=== PATIENT | female | born 1955 | race Caucasian/White ===

== ENCOUNTER → 2019-12-23 07:20 | Outpatient (CLI) | payer MEDICARE, SELFPAY ==
[2019-12-07 09:43] VITALS: BMI 34.2
--- NOTE | 2019-12-23 07:21 | ECHOD_ITS ---
Version 2 Reason For Study: Murmur Procedure This was a 2D Doppler, Color Flow transthoracic echocardiogram. Exam performed in department. Left Ventricle Normal LV size. Mild concentric left ventricular hypertrophy. Left ventricular systolic function is normal. The estimated ejection fraction is 60 %. No regional wall motion abnormalities noted. Right Ventricle Normal RV size. Normal systolic function. Atria Normal left atrium. Normal right atrium. Mitral Valve Normal mitral valve. Tricuspid Valve Normal tricuspid valve. Aortic Valve Trisinus/trileaflet aortic valve. Moderate focal aortic valve calcification. Peak aortic valve gradient 37 mmHg. Mean aortic valve gradient 21 mmHg. Calculated aortic valve area (continuity equation) is 1.3 cm2. Mild to moderate aortic stenosis. Pulmonic Valve Normal pulmonic valve. Great Vessels Normal aortic root. The pulmonary artery is normal size. Normal inferior vena cava. Pericardium/Pleural No pericardial effusion. MMode/2D Measurements & Calculations LVIDd: 4.4 cm IVSd: 1.2 cm LVOT diam: 2.0 cm LVIDs: 2.3 cm LVPWd: 1.2 cm LVOT area: 3.0 cm2 RVDd: 2.8 cm FS: 47.1 % Ao root diam: 3.6 cm LAV(MOD-bp): 47.9 ml EDV(MOD-sp4): 72.1 ml LAV(MOD-bp) Indexed: 26.8 ml/m2 ESV(MOD-sp4): 22.5 ml LAV(MOD-sp2): 48.6 ml EF(MOD-sp4): 68.7 % LAV(MOD-sp4): 44.5 ml EDV(MOD-sp2): 70.6 ml SV(MOD-sp4): 49.6 ml SV(MOD-sp2): 42.0 ml EF(MOD-sp2): 59.5 % LA A4 area: 17.6 cm2 LA dimension(2D): 3.6 cm RA A4 area: 12.4 cm2 Doppler Measurements & Calculations MV E max shaji: 93.9 cm/sec Lat Peak E' Shaji: 8.3 cm/sec Med Peak E' Shaji: 5.6 cm/sec MV A max shaji: 93.4 cm/sec E/E' lat: 11.3 E/E' med: 16.7 MV E/A: 1.0 Ao V2 max: 306.6 cm/sec LV V1 max: 127.6 cm/sec SV(LVOT): 103.1 ml Ao max P.7 mmHg LV V1 max P.5 mmHg Ao V2 mean: 217.7 cm/sec LV V1 mean P.7 mmHg Ao mean P.2 mmHg LV V1 mean: 92.0 cm/sec Ao V2 VTI: 79.0 cm LV V1 VTI: 33.8 cm CHARISSE(I,D): 1.3 cm2 CHARISSE(V,D): 1.3 cm2 PA V2 max: 86.7 cm/sec Interpretation Summary Normal LV size. Mild concentric left ventricular hypertrophy. Left ventricular systolic function is normal. The estimated ejection fraction is 60 %. Peak aortic valve gradient 37 mmHg. Mean aortic valve gradient 21 mmHg. Calculated aortic valve area (continuity equation) is 1.3 cm2. Mild to moderate aortic stenosis. Ordering Physician: Ty Quinones Referring Physician: Joshua Jeronimo Performed By: Isis Novoa RDCS
--- NOTE | 2019-12-23 10:40 | STRESSREP_ITS ---
Stress Test Report Exercise myocardial perfusion stress test. 64-year-old lady with a history of previous LAD stenting. Stress protocol: Resting EKG demonstrates sinus bradycardia with a rate of 48 bpm normal intervals are noted resting blood pressure 154/82 mmHg. The patient exercised according to regular [facility] protocol for a total duration of 6 minutes and 15 seconds. The maximum heart rate attained was 131 bpm which was 84% of maximum active heart rate the maximum workload was 7.3 metabolic equivalents. At rest there were no ST or T wave changes noted to suggest ischemia peak exercise upsloping ST changes only were noted with no meet the criteria for ischemia. The resting blood pressure was 154/82 with a peak blood pressure 164/80 mmHg. The test was terminated due to leg discomfort. No chest pain or shortness of breath was noted. Myocardial perfusion protocol. 11.0 mCi of technetium 99m sestamibi was injected at rest. The patient ex ercised per usual protocol to 6 minutes and 15 seconds. At peak exercise 33.0 mCi of technetium 99m sestamibi was injected stress images were obtained stress and rest images were reconstructed and compared in the short axis vertical long horizontal long axis. Gated images were also obtained Perfusion SPECT analysis: Review of the images demonstrate normal uptake of tracer noted in all areas of the myocardium the resting images similar demonstrate normal uptake of tracer noted in all areas of the myocardium. No reversibility is noted to suggest ischemia no previous infarct is noted. Gated SPECT analysis: The gated ejection fraction is noted to be 72%. Conclusion: Normal exercise myocardial perfusion stress test at a moderate workload. Preserved ejection fraction.
== END ==
PROVIDERS: PCP Family Medicine; Referring Provider Internal Medicine Cardiovascular Disease; Visit Provider Internal Medicine Cardiovascular Disease
DX: R06.00 Dyspnea, unspecified (principal); R07.9 Chest pain, unspecified
CPT/HCPCS: 78452; 93017; 93306; A9500; A4216

== ENCOUNTER 2023-08-07 18:29 | Emergency (ER) | payer MEDICARE, SELFPAY ==
[2023-08-07 18:30] VITALS: BP 174/80; PULSE 72; RESP 14; TEMP 36.8; O2SAT 100
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
--- OUTSIDE RECORDS SUMMARY | 2023-08-07 20:29 | XMS RPT_ITS | CCD ---
Author Name Unknown Address [address] [place] [address] Organization [facility] Care Team Providers Care Manager Global Name Role Phone LINK CASEY Unavailable Unavailable IMCA Unavailable Unavailable Alexander Dietrich Unavailable Unavailable LINK CASEY Unavailable Unavailable LINK CASEY Unavailable Unavailable Alexander Dietrich Unavailable Unavailable LINK CASEY E Unavailable Unavailable Martha Jeronimo MD Primary Care Provider Martha Jeronimo MD Primary Care Provider Martha Jeronimo MD Primary Care Provider YANNLOGJENA, MARIBEL Referring Unavailable MARTHA JERONIMO Primary Care Unavailab le YANNLOGAR, MARIBEL Attending Unavailable MARTHA JERONIMO Primary Care Unavailab IVETTE Barahona Referring Unavailable DONNA WOLF Attending Unavailable MARTHA JERONIMO Primary Care Unavailab IVETTE Barahona Attending Unavailable MARTHA JERONIMO Primary Care Unavailab MARTHA Pryor Referring Unavailab MARTHA Pryor Primary Care Unavailab le PODLOGARMARIBEL Referring Unavailable MARTHA JERONIMO Primary Care Unavailab le PODLOGARMARIBEL Referring Unavailable PODLOGARMARIBEL Attending Unavailable MARTHA JERONIMO Primary Care Unavailab le PODLOGAR, MARIBEL Referring Unavailable MARTHA JERONIMO Primary Care Unavailab le PODLOGAR, MARIBEL Referring Unavailable MARTHA JERONIMO Primary Care Unavailab le Allergies Allergy Classification Reported Allergen(s) Allergy Type Date of Onset Reaction(s) Facility (20 sources) lisinopril; Translations: [LISINOPRIL] Drug Allergy 2 Cough [facility] Repository (7 sources) HMG-CoA reductase inhibitor; Translations: [VILLUMU-OVW-LU A REDUCTASE INHIBITORS] Drug Intolerance 1 Myalgia [facility] Work Phone: (20 sources) Simvastatin; Translations: [SIMVASTATIN] Drug Allergy 9 Other: See Comments [facility] Work Phone: (17 sources) HMG-CoA reductase inhibitor Drug Intolerance 1 Myalgia [facility] Work Phone: Medications Current Medications Medication Drug Class(es) Dates Sig (Normalized) Sig (Original) azithromycin 500 mg oral tablet (2 sources) Macrolide Antimicrobial Start: 06-01-2022 End: 06-04-2022 take 1 tablet by mouth once daily azithromycin (ZITHROMAX) 500 mg tablet Take 1 tablet by mouth once daily for 3 days. 3 tablet 0 06/01/2022 06/04/2022 Active Completed/Discontinued Medications Medication Drug Class(es) Dates Sig (Normalized) Sig (Original) aspirin 81 mg delayed release oral tablet (20 sources) Platelet Aggregation Inhibitor, Nonsteroidal Anti-inflammatory Drug Start: 02-20-2015 take 1 tablet by mouth once daily aspirin, enteric coated (ECOTRIN LOW STRENGTH) 81 mg EC tablet Take 1 tablet by mouth once daily. 0 02/20/2015 Active Problems Active Problems Problem Classification Problem Date Documented Da te Episodic/Chronic Adjustment disorders (20 sources) Adjustment disorder; Translations: [Adjustment disorder, unspecified] Onset: 02-07-2013 02-07-2013 Chronic Blindness and vision defects (1 source) Unspecified visual loss; Translations: [Vision impairment] Onset: 07-08-2022 Chronic Blindness and vision defects (3 sources) Bilateral hyperopia of eyes; Translations: [Hypermetropia, bilateral] Episodic Cardiac dysrhythmias (2 sources) Bradycardia; Translations: [Bradycardia, unspecified] Onset: 06-24-2023 06-24-2023 Episodic Cataract (2 sources) Bilateral senile combined form cataracts of eyes; Translations: [Combined forms of age-related cataract, bilateral] Chronic Coronary atherosclerosis and other heart disease (20 sources) Atherosclerotic heart disease of [place] coronary artery without angina pectoris; Translations: [Coronary arteriosclerosis] Onset: 06-07-2015 06-07-2015 Chronic Disorders of lipid metabolism (20 sources) Mixed hyperlipidemia; Translations: [Mixed hyperlipidemia] Onset: 06-14-2017 06-14-2017 Chronic Essential hypertension (20 sources) Essential hypertension; Translations: [Essential (primary) hypertension] Onset: 02-18-2012 06-07-2015 Chronic Heart valve disorders (20 sources) Nonrheumatic aortic (valve) stenosis; Translations: [Aortic valve disorders] Onset: 06-07-2015 06-07-2015 Chronic Mood disorders (20 sources) Depressive disorder; Translations: [Depression] Onset: 02-07-2013 02-07-2013 Chronic Other and unspecified benign neoplasm (1 source) Tubular adenoma ; Translations: [Benign neoplasm, unspecified site] Episodic Other eye disorders (2 sources) Dry eyes; Translations: [Dry eye syndrome of bilateral lacrimal glands] Episodic Other gastrointestinal disorders (1 source) Abdominal wind pain; Translations: [Gas pain] Episodic Other gastrointestinal disorders (1 source) Abdominal bloating; Translations: [Abdominal distension (gaseous)] Episodic Other gastrointestinal disorders (1 source) History of hemorrhoid; Translations: [Personal history of other diseases of the digestive system] Episodic Other gastrointestinal disorders (1 source) Diarrhea; Translations: [Diarrhea, unspecified] Episodic Other nutritional; endocrine; and metabolic disorders (20 sources) Body mass index 30+ - obesity; Translations: [Obesity, unspecified] 02-18-2018 Chronic Other nutritional; endocrine; and metabolic disorders (5 sources) Obese class II; Translations: [Obesity, unspecified] Onset: 12-22-2022 12-22-2022 Chronic Other nutritional; endocrine; and metabolic disorders (2 sources) Obesity, unspecified; Translations: [Obesity (BMI 30-39.9)] Onset: 02-18-2018 Chronic Other screening for suspected conditions (not mental disorders or infectious disease) (8 sources) Mammography abnormal; Translations: [Other abnormal and inconclusive findings on diagnostic imaging of breast] Onset: 12-22-2022 Episodic Residual codes; unclassified (20 sources) Edema of lower extremity; Translations: [Localized edema] 02-21-2019 Episodic Residual codes; unclassified (1 source) Statin declined; Translations: [Procedure and treatment not carried out because of patient's decision for unspecified reasons] 06-24-2023 Episodic Residual codes; unclassified (1 source) Procedure and treatment not carried out because of patient's decision for unspecified reasons; Translations: [Statin declined] Onset: 06-24-2023 Episodic Unclassified (1 source) Unknown / UNK(Unknown) Onset: 06-07-2015 Past or Other Problems Problem Classification Problem Date Documented Da te Episodic/Chronic Diabetes mellitus without complication (20 sources) Prediabetes; Translations: [Prediabetes] Onset: 08-23-2018 08-23-2018 Episodic Other and unspecified benign neoplasm (9 sources) Tubular adenoma of colon; Translations: [Benign neoplasm of colon, unspecified] Onset: 05-03-2022 06-16-2022 Episodic Residual codes; unclassified (10 sources) Other specified health status; Translations: [Other drug allergy] Onset: 06-16-2022 06-16-2022 Episodic Results Test Name Value Interpretation Reference Range Facil ity Vital Signs Date Time Vital Sign Value Performing Clinician Mary Anne rios 06-24-2023 09:25-0500 Body weight 86.82 kg Maribel Podlogar ULTRASOUND TECHNICIAN.DEEP SEA DIVER Work Phone: [facility] 06-24-2023 09:25-0500 Diastolic blood pressure 72 mm[Hg] Maribel Podlogar ULTRASOUND TECHNICIAN.DEEP SEA DIVER Work Phone: [facility] 06-24-2023 09:25-0500 Heart rate 52 /min Maribel Podlogar ULTRASOUND TECHNICIAN.DEEP SEA DIVER Work Phone: [facility] 06-24-2023 09:25-0500 Respiratory rate 16 /min Maribel Podlogar ULTRASOUND TECHNICIAN.DEEP SEA DIVER Work Phone: [facility] 06-24-2023 09:25-0500 SaO2% (BldA) [Mass fraction] 98 % Maribel Podlogar ULTRASOUND TECHNICIAN.DEEP SEA DIVER Work Phone: [facility] 06-24-2023 09:25-0500 Systolic blood pressure 116 mm[Hg] Maribel Podlogar ULTRASOUND TECHNICIAN.DEEP SEA DIVER Work Phone: [facility] 06-03-2022 08:48-0400 Body temperature 98.01 [degF] Che Ríos PA-C Work Phone: [facility] 06-03-2022 08:48-0400 Body weight 86 kg Che Michoacano PA-C Work Phone: [facility] 06-03-2022 08:48-0400 Diastolic blood pressure 70 mm[Hg] Che Egeland PA-C Work Phone: [facility] 06-03-2022 08:48-0400 Heart rate 79 /min Che Michoacano PA-C Work Phone: [facility] 06-03-2022 08:48-0400 SaO2% (BldA) [Mass fraction] 98 % Che Michoacano PA-C Work Phone: [facility] 06-03-2022 08:48-0400 Systolic blood pressure 128 mm[Hg] Che Egeland PA-C Work Phone: [facility] 05-28-2022 14:02-0400 Body temperature 97.11 [degF] Jose Miguel Francisco ULTRASOUND TECHNICIAN.DEEP SEA DIVER Work Phone: [facility] 05-28-2022 14:02-0400 Body weight 83.46 kg Jose Miguel Francisco ULTRASOUND TECHNICIAN.DEEP SEA DIVER Work Phone: [facility] 05-28-2022 14:02-0400 Diastolic blood pressure 88 mm[Hg] Jose Miguel Francisco ULTRASOUND TECHNICIAN.DEEP SEA DIVER Work Phone: [facility] 05-28-2022 14:02-0400 Heart rate 65 /min Jose Miguel Francisco ULTRASOUND TECHNICIAN.DEEP SEA DIVER Work Phone: [facility] 05-28-2022 14:02-0400 Respiratory rate 18 /min Jose Miguel Francisco ULTRASOUND TECHNICIAN.DEEP SEA DIVER Work Phone: [facility] 05-28-2022 14:02-0400 SaO2% (BldA) [Mass fraction] 97 % Jose Miguel Francisco ULTRASOUND TECHNICIAN.DEEP SEA DIVER Work Phone: [facility] 05-28-2022 14:02-0400 Systolic blood pressure 130 mm[Hg] Jose Miguel Francisco ULTRASOUND TECHNICIAN.DEEP SEA DIVER Work Phone: [facility] 05-02-2022 10:55-0400 Heart rate 47 /min Kimberly Jaramillo MD Work Phone: [facility] 05-02-2022 10:55-0400 SaO2% (BldA) [Mass fraction] 99 % Kimberly Jaramillo MD Work Phone: [facility] 05-02-2022 10:45-0400 Diastolic blood pressure 62 mm[Hg] Kimberly Jaramillo MD Work Phone: [facility] 05-02-2022 10:45-0400 Respiratory rate 16 /min Kimberly Jaramillo MD Work Phone: [facility] 05-02-2022 10:45-0400 Systolic blood pressure 131 mm[Hg] Kimberly Jaramillo MD Work Phone: [facility] 05-02-2022 09:27-0400 Body temperature 97.2 [degF] Kimberly Jaramillo MD Work Phone: [facility] 05-02-2022 09:27-0400 Body weight 83.5 kg Kimberly Jaramillo MD Work Phone: [facility] 02-25-2022 09:35-0400 Body height 152.4 cm Che Egeland PA-C Work Phone: [facility] 02-25-2022 09:35-0400 Body temperature 96.91 [degF] Che Michoacano PA-C Work Phone: [facility] 02-25-2022 09:35-0400 Body weight 83.46 kg Che Michoacano PA-C Work Phone: [facility] 02-25-2022 09:35-0400 Diastolic blood pressure 90 mm[Hg] Che Michoacano PA-C Work Phone: [facility] 02-25-2022 09:35-0400 Heart rate 86 /min Che Egeland PA-C Work Phone: [facility] 02-25-2022 09:35-0400 SaO2% (BldA) [Mass fraction] 98 % Che Michoacano PA-C Work Phone: [facility] 02-25-2022 09:35-0400 Systolic blood pressure 140 mm[Hg] Che Ríos PA-C Work Phone: [facility] 12-13-2021 10:45-0400 Body height 151.5 cm Martha Jeronimo MD Work Phone: [facility] 12-13-2021 10:45-0400 Body weight 83.01 kg Martha Jeronimo MD Work Phone: [facility] 12-13-2021 10:45-0400 Diastolic blood pressure 72 mm[Hg] Martha Jeronimo MD Work Phone: [facility] 12-13-2021 10:45-0400 Heart rate 56 /min Martha Jeronimo MD Work Phone: [facility] 12-13-2021 10:45-0400 Respiratory rate 18 /min Martha Jeronimo MD Work Phone: [facility] 12-13-2021 10:45-0400 SaO2% (BldA) [Mass fraction] 95 % Martha Jeronimo MD Work Phone: [facility] 12-13-2021 10:45-0400 Systolic blood pressure 118 mm[Hg] Martha Jeronimo MD Work Phone: [facility] Encounters Encounter Date Encounter Type Care Provider Facility Start: 07-01-2023 Telephone encounter Maribel calle APRN.CNP Work Phone: [facility] Procedures Date Procedure Procedure Detail Performing Clinician Start: 06-24-2023 Ecg routine ecg w/le ast 12 lds i&r only [facility] Provider Start: 03-24-2023 Lipid 1996 panel - S anayeli or Plasma Maribel Rebolledo APRN.CNP Work Phone: Start: 03-13-2023 Mammography Maribel calle APRN.CNP Work Phone: Start: 05-02-2022 Colonoscopy flx dx w/collj spec when pfrmd Che Ríos PA-C Work Phone: Start: 05-02-2022 Colonoscopy Kimberly Jaramillo MD Work Phone: Start: 01-14-2022 ESTELA MELIA W LAM LT Maryan Reddylogar ULTRASOUND TECHNICIAN.DEEP SEA DIVER Work Phone: Start: 12-09-2021 Mammography Mammograph y Coordinator Start: 04-02-2020 Mammography Ryder Jeronimo MD Work Phone: Plan of Treatment Date Care Activity Detail Author Start: 03-24-2028 Lipid 1996 panel - S anayeli or Plasma Lipid Screening [facility] Start: 06-23-2027 LIPID SCREEN LIPID SCREEN [facility] Start: 12-13-2026 LIPID SCREEN LIPID SCREEN [facility] Start: 07-31-2026 LIPID SCREEN LIPID SCREEN [facility] Start: 06-24-2026 Diabetes Screening Diabetes Screenin g [facility] Start: 12-22-2025 DIABETES SCREEN DIABETES SCREEN [facility] Start: 12-22-2025 Diabetes Screening Diabetes Screenin g [facility] Start: 06-23-2025 DIABETES SCREEN DIABETES SCREEN [facility] Start: 05-02-2025 Colonoscopy COLONOSCOPY [facility] Start: 05-02-2025 COLORECTAL CANCER SCREENING COLORECTAL CANCER SCREENING [facility] Start: 12-13-2024 DIABETES SCREEN DIABETES SCREEN [facility] Start: 07-31-2024 DIABETES SCREEN DIABETES SCREEN [facility] Start: 06-24-2024 Annual PCP Team Jacker nicko Disease Visit Annual PCP Team Chronic Disease Visit [facility] Start: 06-24-2024 BP Controlled (<130/80) BP Controlle d (<130/80) [facility] Start: 06-24-2024 Covid-19 Vaccine (#1) Covid-19 Vacci ne (#1) [facility] Immunizations Immunization Date Immunization Notes Care Provider Fa cilisaqib 05-04-2018 influenza virus vaccine, unspecified formulation Maribel Rebolledo ULTRASOUND TECHNICIAN.DEEP SEA DIVER Work Phone: [facility] 06-12-2017 influenza, injectabl e, quadrivalent, contains preservative Martha Jeronimo MD Work Phone: [facility] 01-02-2014 tetanus toxoid, redu pepe diphtheria toxoid, and acellular pertussis vaccine, adsorbed Martha Jeronimo MD Work Phone: [facility] Payers Date Payer Category Payer Unknown ANTHZAK[employer]YA BLUE [facility] S AND BLUE SHIELD [employer] HMO [id number] 2023-Present [phone] [address] [place] [address] O [id number] 2023 Unknown [id number] 2019 Medicare MEDICARE MEDICAR E A AND B [id number] 2019-Present [phone] [place] [address] Medicare [id number] 2019 Medicare MEDICARE MEDICAR E A AND B [id number] 2019-Present [phone] [place] [address] Medicare [id number] 2019 Medicare [id number] Medicaid [id number] Social History Date Type Detail Facility Start: 01-09-2015 End: 05-02-2022 Tobacco smoking status NHIS Never smoked tobacco [facility] Work Phone: Start: 01-09-2015 End: 05-02-2022 Tobacco use and exposure Smokeless tobacco non-user [facility] Work Phone: Start: 08-07-2021 End: 06-24-2023 Alcohol intake Current drinker of alcohol (finding) [facility] Start: 02-18-2018 History SDOH Alcohol Comment 1 drink 1-2 times per month [facility] Start: 01-09-2015 End: 05-02-2022 Tobacco Comment and son smoke, dad was a smoker. [facility] Start: 1955 Sex Assigned At Not on file [facility] Start: 11-29-2021 End: 06-16-2022 Exposure to SARS-CoV-2 (event) Not sure [facility] History of tobacco use Passive smoker [facility] Start: 1955 Sex Assigned At Female C [facility] Start: 12-13-2021 End: 12-22-2022 History of Social function [facility] Start: 12-13-2021 End: 12-22-2022 Tobacco use panel [facility] Adult Depression Screening Assessment 2 [facility] Start: 03-20-2022 Gender identity Identifies as female gender (finding) [facility] Start: 03-20-2022 Sexual orientation Heterosexual (fin ding) [facility] Clinical Notes 11-29-2021 to 07-02-2023 Telephone Encounter - Layne Hudson RN - 07/02/2023 9:22 AM ESTTelephone Encounter - Simin Osei RN - 07/01/2023 1:57 PM ESTTelephone Encounter - Simin Osei RN - 07/01/2023 1:57 PM EST Note Date & Type Note Facility 07-02-2023 Miscellaneous Notes Patient returned call and given provider's message below and patient verbalized understanding. Ruben Hudson RN Called and left a voicemail on both home and cell numbers to have the patient call back and ask for a nurse to receive the providers message. ----- Message from Maribel Rebolledo APRN.DEEP SEA DIVER sent at 07/01/2023 12:29 PM EST ----- TSH in normal range with T4 just below normal will recheck in 6 months. Maribel Rebolledo APRN.DEEP SEA DIVER documented in this encounter [facility] 06-30-2023 Miscellaneous Notes Patient notified of results and provider's instructions. Patient verbalizes understanding. Denice Rivera RN Message left for patient to call office back for update. Reba Guadarrama LPN TSH is slightly elevated. Would like to check additional blood work. Maribel Rebolledo APRN.DREAD documented in this encounter [facility] 06-24-2023 Note HNO ID: [id number] Author: Maribel Rebolledo APRN.DREAD Service: ? Author Type: Nurse Practitioner Type: Progress Notes Filed: 06/24/2023 10:26 AM Note Text: 06/24/2023 Patient presents with: F/U 6 months SUBJECTIVE: This is a 68 year old that is here today for Above Complaints. Since last office visit has been in good health without ER visits or hospitalizations. ASHD: Follows with [facility] with last appointment on 07/15/2023. No medication changes at that time. She reports she has upcoming appointment in August HTN: Patient is compliant with meds Yes Monitors bp at home: No. Denies side effects: No. Chest pain: No. Dyspnea: No. Edema: No. Palpitations: No. Syncope: No. Headache: No. Dizziness: No. HYPERLIPIDEMIA: Restarted her Zetia after last appointment. Did not take consistently and then stopped all together. Per patient she does not want to take Zetia or any other cholesterol medications Reports she stopped her snacking on chips Pulse rate was 41 on arrival. Denies fatigue, lightheadedness, dizziness, SOB, dyspnea, chest pain, palpitations or leg edema PAST MEDICAL HISTORY Diagnosis Date Adjustment disorder with anxious mood Aortic stenosis ASHD (arteriosclerotic heart disease) Dr. Quinones Campylobacter diarrhea 05/2022 High blood pressure History of transfusion Hyperlipidemia Hyperparathyroidism (HCC) 1999 s/p parathyroidectomy Hypertension Lower extremity edema Obesity (BMI 30-39.9) Statin intolerance Tubular adenoma of colon 05/2022 repeat c-scope 3 years ALLERGIES Lisinopril, Simvastatin, and Udtflwk-Wwv-Kje Reductase Inhibitors MEDICATIONS Current Outpatient Medications Medication Sig losartan (COZAAR) 50 mg tablet Take 1.5 tablets by mouth once daily. hydroCHLOROthiazide 25 mg tablet Take 1 tablet by mouth once daily. ezetimibe (ZETIA) 10 mg tablet Take 1 tablet by mouth once daily. propylene glycoL (SYSTANE COMPLETE) 0.6 % drop Use 1 Drop in both eyes three times daily. MULTI-VITAMIN ORAL Take by mouth once daily. Compression Knee Highs KNEE HIGH COMPRESSION STOCKINGS 20-30 MM. DX: EDEMA aspirin, enteric coated (ECOTRIN LOW STRENGTH) 81 mg EC tablet Take 1 tablet by mouth once daily. nitroglycerin sublingual (NITROQUICK) 0.4 mg SL tablet Dissolve 1 tablet under the tongue every 5 minutes as needed for Chest Pain. No current facility-administered medications for this visit. Medications and allergies reviewed by this provider. SOCIAL HISTORY Social History Tobacco Use Smoking status: Never Passive exposure: Yes Smokeless tobacco: Never Tobacco comments: and son smoke, dad was a smoker. Vaping Use Vaping Use: Never used Substance Use Topics Alcohol use: Yes Comment: 1 drink 1-2 times per month Drug use: No REVIEW OF SYSTEMS All other reviewed and negative other than HPI. OBJECTIVE: BP 116/72 Pulse (!) 52 Resp 16 Wt 86.8 kg (191 lb 6.4 oz) SpO2 98% BMI 38.08 kg/m? . Vital signs reviewed by this provider. APPEARANCE Well appearing, alert, in no acute distress, well-hydrated, well nourished. EYES conjunctiva and sclera normal. HEART Bradycardia, murmur 2/6 heard best at LUSB no gallops, no JVD appreciated LUNG clear to auscultation. No wheezes, rhonchi or rales EXTREMITIES Extremities normal, No deformities, No skin discoloration, and No edema SKIN Skin color, texture, turgor normal, no suspicious rashes or lesions to exposed skin Component Latest Ref Rng AND Units 03/24/2023 Cholesterol, Total <200 mg/dL 177 Triglyceride <150 mg/dL 95 HDL Cholesterol >39 mg/dL 47 Non HDL Cholesterol <130 mg/dL 130 (H) Fasting Time hrs 12 VLDL Cholesterol <30 mg/dL 19 TC:HDL Ratio <5.10 3.77 LDL Cholesterol <100 mg/dL 111 (H) LDL:HDL Ratio <2.54 2.36 Shingrix Vaccine(1 of 2) Never done RSV Vaccine(1 - 1-dose 60+ series) Never done Pneumococcal Vaccine: 65+(1 - PCV) Never done Advance Directive Discussion due on 08/03/2022 Influenza Vaccine(1) due on 01/31/2024 Covid-19 Vaccine(1) due on 06/24/2024 DTaP,Tdap,Td Vaccine(2 - Td or Tdap) due on 01/03/2024 Mammogram Screening due on 03/13/2024 LDL Cholesterol due on 03/24/2024 Annual PCP Team Chronic Disease Visit due on 06/24/2024 BP Controlled (<130/80) due on 06/24/2024 Colorectal Cancer Screening due on 05/02/2025 Diabetes Screening due on 12/22/2025 Lipid Screening due on 03/24/2028 Bone Density Screening Completed Hepatitis C Screening Completed ASSESSMENT/PLAN: 1. Essential hypertension - ICD9: 401.9, ICD10: I10 (primary diagnosis) - Controlled - Continue current medications - Recommend home blood pressure monitoring, to bring results to next visit - Encouraged sodium restriction, DASH or Mediterranean diet - Recommend regular aerobic exercise - Discussed need for and benefit of weight loss. BMI 38.08 kg/(m2) - Follow up in 6 months for hypertension visit 2. Statin declined - IC (more content not included)... [facility] 06-24-2023 History of Presen t illness Narrative 06/24/2023 Patient presents with: F/U 6 months SUBJECTIVE: This is a 68 year old that is here today for Above Complaints. Since last office visit has been in good health without ER visits or hospitalizations. ASHD: Follows with [facility] with last appointment on 07/15/2023. No medication changes at that time. She reports she has upcoming appointment in August HTN: Patient is compliant with meds Yes Monitors bp at home: No. Denies side effects: No. Chest pain: No. Dyspnea: No. Edema: No. Palpitations: No. Syncope: No. Headache: No. Dizziness: No. HYPERLIPIDEMIA: Restarted her Zetia after last appointment. Did not take consistently and then stopped all together. Per patient she does not want to take Zetia or any other cholesterol medications Reports she stopped her snacking on chips Pulse rate was 41 on arrival. Denies fatigue, lightheadedness, dizziness, SOB, dyspnea, chest pain, palpitations or leg edema PAST MEDICAL HISTORY Diagnosis Date Adjustment disorder with anxious mood Aortic stenosis ASHD (arteriosclerotic heart disease) Dr. Quinones Campylobacter diarrhea 05/2022 High blood pressure History of transfusion Hyperlipidemia Hyperparathyroidism (HCC) 1999 s/p parathyroidectomy Hypertension Lower extremity edema Obesity (BMI 30-39.9) Statin intolerance Tubular adenoma of colon 05/2022 repeat c-scope 3 years ALLERGIES Lisinopril, Simvastatin, and Mhhkoca-Hbu-Jqt Reductase Inhibitors MEDICATIONS Current Outpatient Medications Medication Sig losartan (COZAAR) 50 mg tablet Take 1.5 tablets by mouth once daily. hydroCHLOROthiazide 25 mg tablet Take 1 tablet by mouth once daily. ezetimibe (ZETIA) 10 mg tablet Take 1 tablet by mouth once daily. propylene glycoL (SYSTANE COMPLETE) 0.6 % drop Use 1 Drop in both eyes three times daily. MULTI-VITAMIN ORAL Take by mouth once daily. Compression Knee Highs KNEE HIGH COMPRESSION STOCKINGS 20-30 MM. DX: EDEMA aspirin, enteric coated (ECOTRIN LOW STRENGTH) 81 mg EC tablet Take 1 tablet by mouth once daily. nitroglycerin sublingual (NITROQUICK) 0.4 mg SL tablet Dissolve 1 tablet under the tongue every 5 minutes as needed for Chest Pain. No current facility-administered medications for this visit. Medications and allergies reviewed by this provider. SOCIAL HISTORY Social History Tobacco Use Smoking status: Never Passive exposure: Yes Smokeless tobacco: Never Tobacco comments: and son smoke, dad was a smoker. Vaping Use Vaping Use: Never used Substance Use Topics Alcohol use: Yes Comment: 1 drink 1-2 times per month Drug use: No REVIEW OF SYSTEMS All other reviewed and negative other than HPI. OBJECTIVE: BP 116/72 Pulse (!) 52 Resp 16 Wt 86.8 kg (191 lb 6.4 oz) SpO2 98% BMI 38.08 kg/m . Vital signs reviewed by this provider. APPEARANCE Well appearing, alert, in no acute distress, well-hydrated, well nourished. EYES conjunctiva and sclera normal. HEART Bradycardia, murmur 2/6 heard best at LUSB no gallops, no JVD appreciated LUNG clear to auscultation. No wheezes, rhonchi or rales EXTREMITIES Extremities normal, No deformities, No skin discoloration, and No edema SKIN Skin color, texture, turgor normal, no suspicious rashes or lesions to exposed skin Component Latest Ref Rng & Units 03/24/2023 Cholesterol, Total <200 mg/dL 177 Triglyceride <150 mg/dL 95 HDL Cholesterol >39 mg/dL 47 Non HDL Cholesterol <130 mg/dL 130 (H) Fasting Time hrs 12 VLDL Cholesterol <30 mg/dL 19 TC:HDL Ratio <5.10 3.77 LDL Cholesterol <100 mg/dL 111 (H) LDL:HDL Ratio <2.54 2.36 Shingrix Vaccine(1 of 2) Never done RSV Vaccine(1 - 1-dose 60+ series) Never done Pneumococcal Vaccine: 65+(1 - PCV) Never done Advance Directive Discussion due on 08/03/2022 Influenza Vaccine(1) due on 01/31/2024 Covid-19 Vaccine(1) due on 06/24/2024 DTaP,Tdap,Td Vaccine(2 - Td or Tdap) due on 01/03/2024 Mammogram Screening due on 03/13/2024 LDL Cholesterol due on 03/24/2024 Annual PCP Team Chronic Disease Visit due on 06/24/2024 BP Controlled (<130/80) due on 06/24/2024 Colorectal Cancer Screening due on 05/02/2025 Diabetes Screening due on 12/22/2025 Lipid Screening due on 03/24/2028 Bone Density Screening Completed Hepatitis C Screening Completed ASSESSMENT/PLAN: 1. Essential hypertension - ICD9: 401.9, ICD10: I10 (primary diagnosis) - Controlled - Continue current medications - Recommend home blood pressure monitoring, to bring results to next visit - Encouraged sodium restriction, DASH or Mediterranean diet - Recommend regular aerobic exercise - Discussed need for and benefit of weight loss. BMI 38.08 kg/(m^2) - Follow up in 6 months for hypertension visit 2. Statin declined - ICD9: V64.2, ICD10: Z53.20 - reviewed trying lower dose statin, declines - reviewed diet ad exercise 3. 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 Hyperlipidemia, mixed - ICD9: 272.2, ICD10: E78.2 - Improving control - Counseled on healthy diet and regular exercise - she is agreeable to take the Zetia daily - Discussed need for and benefit of weight loss. BMI 38.08 kg/(m^2) - Follow up in 6 months, sooner should any other issues arise. - COMP METABOLIC PANEL - CBC 5. Obesity (BMI 30-39.9) - ICD9: 278.00, ICD10: E66.9 Stable - Behavioral intervention - Lengthy discussion in office today regarding diet and exercise. Discussed use of small plate to eat meals from, drink 1 glass of water 10-15 minutes prior to eating meal, drink 8 glasses of water daily, eat fresh fruit and vegetable during meal first then lean protein such as grilled/baked chicken breast or fish, limit carbohydrate intake (less pasta, breads, rice and snack foods) as well as limiting sugars (desserts etc). Important to count / track your calories and exercise as well. 6. ASHD (arteriosclerotic heart disease) - ICD9: 414.00, ICD10: I25.10 - continue current medications - follow-up with cardiology as scheduled Maribel Rebolledo APRN.DREAD Prescription instructions reviewed with patient as applicable. Patient advised if symptoms do not improve or if symptoms worsen sooner, to contact their primary care physician. Potential red flag symptoms discussed with the patient. Reviewed appropriate action plan to take if red flag symptoms occur. Patient agreeable to treatment plan. I spent a total of 30 minutes on the date of the service which included preparing to see the patient, [id number] patient care, completing clinical documentation, obtaining and/or reviewing separately obtained history, performing a medically appropriate examination, counseling and educating the patient/family/caregiver, and ordering medications, tests, or procedures. documented in this encounter [facility] 03-17-2023 Miscellaneous Notes TC to patient who verbalized understanding of providers message with no questions at this time. SHANE Salinas Please call patient and let her know her mammogram There is no mammographic evidence of malignancy. A 1 year screening mammogram is recommended. Maribel Rebolledo APRN.CNP documented in this encounter [facility] 03-16-2023 Miscellaneous Notes March 17, 2023 PID: [id number] Marysol Pettit [address] [place] [address] Dear Ms. Pettit, We are pleased to inform you that the results of your recent breast imaging exam on 03/13/2023 are normal. Early detection of cancer is very important. We also understand recommendations regarding breast cancer screening are controversial. Please discuss with your primary care provider which strategy is best for you and whether a mammogram is right for you. Your imaging studies and report will be kept on file at [facility] as part of your permanent medical record and are available for your continuing care. Thank you for allowing us to help in meeting your health care needs. Sincerely, Dr. Mason Interpreting Radiologist [facility] (Normal over 40) documented in this encounter [facility] 03-13-2023 Note HNO ID: [id number] Author: Renetta Gr RT(R) Service: ? Author Type: Technologist Type: Progress Notes Filed: 03/13/2023 9:58 AM Note Text: Radiology Service Progress Note PATIENT NAME: Marysol Pettit DATE OF SERVICE: March 13, 2023 TIME: 9:58 AM PATIENT IDENTITY VERIFICATION COMPLETED USING TWO (2) IDENTIFIERS: Name and Date of confirmed by patient verbally. FALL SCREENING: Has the patient had 2 falls in the last year or 1 fall with injury or currently using an Ambulatory Assistive Device (Walker, Cane, Wheelchair, Crutches, etc.)? No PATIENT GENDER DATA: Female. status: : No status: NO. PATIENT RELEVANT IMPLANT DATA REVIEWED: Not Applicable RADIOLOGY DEPARTMENT: Mammography PERIPHERAL IV DATA: Not applicable SIGNED BY: Renetta Gr, RT(R) March 13, 2023 9:58 AM [facility] 12-22-2022 Note HNO ID: [id number] Author: Maribel Rebolledo APRN.DEEP SEA DIVER Service: ? Author Type: Nurse Practitioner Type: Progress Notes Filed: 12/22/2022 10:28 AM Note Text: 12/22/2022 Patient presents with: F/U 6 Month SUBJECTIVE: This is a 67 year old that is here today for Above Complaints. Since last office visit has been in good health without ER visits or hospitalizations. ASHD: following with Dr. Quinones with last visit on HTN: Patient is compliant with meds Yes Monitors bp at home: occasionally . Denies side effects: Yes. Chest pain: No. Dyspnea: No. Edema: No. Palpitations: No. Syncope: No. Headache: No. Dizziness: No. HYPERLIPIDEMIA: not taking Zetia as prescribed. Reports can not take statins. Reports zetia costs her $200. PAST MEDICAL HISTORY Diagnosis Date Adjustment disorder with anxious mood Aortic stenosis ASHD (arteriosclerotic heart disease) Dr. Quinones Campylobacter diarrhea 05/2022 High blood pressure History of transfusion Hyperlipidemia Hyperparathyroidism (HCC) 1999 s/p parathyroidectomy Hypertension Lower extremity edema Obesity (BMI 30-39.9) Statin intolerance Tubular adenoma of colon 05/2022 repeat c-scope 3 years ALLERGIES Lisinopril, Simvastatin, and Ycjnulq-Evt-Axl Reductase Inhibitors MEDICATIONS Current Outpatient Medications Medication Sig hydroCHLOROthiazide (HYDRODIURIL, ESIDRIX) 25 mg tablet Take 1 tablet by mouth once daily. losartan (COZAAR) 50 mg tablet Take 1.5 tablets by mouth once daily. propylene glycoL (SYSTANE COMPLETE) 0.6 % drop Use 1 Drop in both eyes three times daily. ezetimibe (ZETIA) 10 mg tablet Take 1 tablet by mouth once daily. (Patient not taking: Reported on 12/22/2022) MULTI-VITAMIN ORAL Take by mouth once daily. Compression Knee Highs KNEE HIGH COMPRESSION STOCKINGS 20-30 MM. DX: EDEMA aspirin, enteric coated (ECOTRIN LOW STRENGTH) 81 mg EC tablet Take 1 tablet by mouth once daily. nitroglycerin sublingual (NITROQUICK) 0.4 mg SL tablet Dissolve 1 tablet under the tongue every 5 minutes as needed for Chest Pain. No current facility-administered medications for this visit. Medications and allergies reviewed by this provider. SOCIAL HISTORY Social History Tobacco Use Smoking status: Never Passive exposure: Yes Smokeless tobacco: Never Tobacco comments: and son smoke, dad was a smoker. Vaping Use Vaping Use: Never used Substance Use Topics Alcohol use: Yes Comment: 1 drink 1-2 times per month Drug use: No REVIEW OF SYSTEMS All other reviewed and negative other than HPI. OBJECTIVE: BP 138/82 Pulse (!) 59 Resp 18 Wt 87.9 kg (193 lb 12.8 oz) SpO2 98% BMI 38.55 kg/m? . Vital signs reviewed by this provider. APPEARANCE Well appearing, alert, in no acute distress, well-hydrated, well nourished. HEART RRR with normal S1 and S2, no gallops, no JVD appreciated and Murmur 1/6 - heard best over RUSB LUNG clear to auscultation. No wheezes, rhonchi or rales EXTREMITIES Extremities normal, No deformities, No skin discoloration, and No edema SKIN Skin color, texture, turgor normal, no suspicious rashes or lesions to exposed skin Component Latest Ref Rng AND Units 06/23/2022 Protein, Total 6.3 - 8.0 g/dL 7.0 Albumin 3.9 - 4.9 g/dL 4.3 Calcium 8.5 - 10.2 mg/dL 9.7 Bilirubin, Total 0.2 - 1.3 mg/dL 0.4 Alkaline Phosphatase 34 - 123 U/L 79 AST 13 - 35 U/L 20 ALT 7 - 38 U/L 18 Glucose 74 - 99 mg/dL 99 BUN 7 - 21 mg/dL 17 Creatinine 0.58 - 0.96 mg/dL 0.90 Sodium 136 - 144 mmol/L 139 Potassium 3.7 - 5.1 mmol/L 4.1 Chloride 97 - 105 mmol/L 103 CO2 22 - 30 mmol/L 25 Anion Gap 9 - 18 mmol/L 11 eGFR >=60 mL/min/1.73mA? 70 WBC 3.70 - 11.00 k/uL 8.07 RBC 3.90 - 5.20 m/uL 4.91 Hemoglobin 11.5 - 15.5 g/dL 14.7 Hematocrit 36.0 - 46.0 % 45.4 MCV 80.0 - 100.0 fL 92.5 MCH 26.0 - 34.0 pg 29.9 MCHC 30.5 - 36.0 g/dL 32.4 RDW-CV 11.5 - 15.0 % 13.7 Platelet Count 150 - 400 k/uL 250 MPV 9.0 - 12.7 fL 11.1 Absolute nRBC <0.01 k/uL <0.01 Cholesterol, Total <200 mg/dL 226 (H) Triglyceride <150 mg/dL 95 HDL Cholesterol >39 mg/dL 56 Non HDL Cholesterol <130 mg/dL 170 (H) Fasting Time hrs 12 VLDL Cholesterol <30 mg/dL 19 TC:HDL Ratio <5.10 4.04 LDL Cholesterol <100 mg/dL 151 (H) LDL:HDL Ratio <2.54 2.70 (H) Hemoglobin A1C 4.3 - 5.6 % 5.5 Estimated Average Glucose mg/dL 111 ADVANCE DIRECTIVE DISCUSSION due on 08/03/2022 MAMMOGRAM due on 12/09/2022 SHINGRIX VACCINE(1 of 2) due on 06/16/2023 COVID-19 VACCINE(1) due on 06/16/2023 PNEUMOCOCCAL: 65+(1 - PCV) due on 06/16/2023 INFLUENZA(Season Ended) due on 04/03/2023 ANNUAL PCP TEAM CHRONIC DISEASE VISIT due on 06/16/2023 BP CONTROLLED (<130/80) due on 06/16/2023 LDL CHOLESTEROL due on 06/23/2023 DTAP,TDAP,TD(2 - Td or Tdap) due on 01/03/2024 COLORECTAL CANCER SCREENING due on 05/02/2025 DIABETES SCREEN due on 06/23/2025 LIPID SCREEN due on 06/23/2027 BONE DENSITY Completed (more content not included)... [facility] 09-08-2022 Note HNO ID: [id number] Author: Donna Wolf, SIRI Service: ? Author Type: ACCOUNTING GENERALIST Type: Progress Notes Filed: 09/08/2022 9:46 AM Note Text: 1. Bilateral dry eyes Continue warm compresses and artificial tears 2-3 times daily 2. 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-related cataract, both eyes Mild-monitor 3. Hypermetropia, bilateral 4. Regular astigmatism of both eyes 5. Presbyopia Finalized spec rx Monitor yearly Donna Wolf, OD September 08, 2022 9:43 AM [facility] 09-08-2022 History of Presen t illness Narrative 1. Bilateral dry eyes Continue warm compresses and artificial tears 2-3 times daily 2. 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-related cataract, both eyes Mild-monitor 3. Hypermetropia, bilateral 4. Regular astigmatism of both eyes 5. Presbyopia Finalized spec rx Monitor yearly Donna Wolf, OD September 08, 2022 9:43 AM documented in this encounter [facility] 08-26-2022 Miscellaneous Notes Patient has been identified by name and date of : Yes Requested Prescriptions Pending Prescriptions Disp Refills hydroCHLOROthiazide (HYDRODIURIL, ESIDRIX) 25 mg tablet 90 tablet 1 Sig: Take 1 tablet by mouth once daily. losartan (COZAAR) 50 mg tablet 135 tablet 1 Sig: Take 1.5 tablets by mouth once daily. RX INSTRUCTIONS: Patient aware RX will be sent to pharmacy. No need to notify patient. Dianelys Simpson documented in this encounter [facility] 07-08-2022 Note HNO ID: [id number] Author: Ivette Ingram MD Service: ? Author Type: Physician Type: Progress Notes Filed: 07/08/2022 11:52 AM Note Text: Assessment and Plan 1. Bilateral dry eyes - with fluctuating vision both eyes -worse with prolonged computer use 2. 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-related cataract, both eyes -likely of limited visual significance Plan: -Systane complete three times a day both eyes -hot compresses twice a day both eyes -would like new glasses --> Dr. Wolf -can continue with Dr. Wolf for dry eye control, back to me if no response to treamtnet I have confirmed and edited as necessary the relevant ophthalmic history, ROS, and the neuro exam findings as obtained by others. I have seen and examined Marysol Pettit. I have discussed the case and the management of this patient's care with the Resident/Fellow, if applicable. I also have reviewed and agree with the assessment and plan as stated above and agree with all of its relevant components. Ivette Ingram MD July 08, 2022 11:46 AM [facility] 07-08-2022 History of Presen t illness Narrative Assessment and Plan 1. Bilateral dry eyes - with fluctuating vision both eyes -worse with prolonged computer use 2. 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-related cataract, both eyes -likely of limited visual significance Plan: -Systane complete three times a day both eyes -hot compresses twice a day both eyes -would like new glasses --> Dr. Wolf -can continue with Dr. Wolf for dry eye control, back to me if no response to treamtnet I have confirmed and edited as necessary the relevant ophthalmic history, ROS, and the neuro exam findings as obtained by others. I have seen and examined Marysol Pettit. I have discussed the case and the management of this patient's care with the Resident/Fellow, if applicable. I also have reviewed and agree with the assessment and plan as stated above and agree with all of its relevant components. Ivette Ingram MD July 08, 2022 11:46 AM documented in this encounter [facility] 06-25-2022 Miscellaneous Notes Prescription for Zetia sent. Maribel Rebolledo APRN.DREAD Patient notified. Verbalized understanding. States she is willing to start the medication send to [facility]. Requested copy of labs, printed and sent to be mailed. ----- Message from Martha Jeronimo MD sent at 06/25/2022 11:57 AM EST ----- Normal labs aside from high cholesterol. Patient intolerant to statins. Would recommend starting her on Zetia on a daily basis to lower her cholesterol. If agreeable, will call rx to requested pharmacy. The 10-year ASCVD risk score (Shon BRANCH, et al., 2019) is: 8% Values used to calculate the score: Age: 67 years Sex: Female Is Non- : No Diabetic: No Tobacco smoker: No Systolic Blood Pressure: 110 mmHg Is BP treated: Yes HDL Cholesterol: 56 mg/dL Total Cholesterol: 226 mg/dL documented in this encounter [facility] 06-03-2022 History of Presen t illness Narrative FOLLOW UP VISIT - ENDOSCOPY NAME: Marysol Nielson [facility] NO.: [id number] DATE OF SERVICE: 06/03/2022 : 1955 REFERRING PHYSICIAN: Martha Jeronimo MD Marysol is a patient I am following for screening colonoscopy. Dr. Jaramillo performed lower endoscopy on 05/02/22. Findings per operative report showed: Impression: - Non-bleeding external and internal hemorrhoids. - Four 3 to 11 mm polyps in the ascending colon, removed with a cold snare. Resected and retrieved. - Diverticulosis in the sigmoid colon. Pathology demonstrated: FINAL DIAGNOSIS Right colon polyps, biopsies: - Tubular adenomas. JRG/rw 05/05/2022 The patient notes no complaints since the procedure. Does note in interim developed diarrhea and was treated for Campylobacter infection, has completed antibiotics with symptoms resolved currently. VITALS: Blood pressure 128/70, pulse 79, temperature 36.7 C (98 F), weight 86 kg (189 lb 9.6 oz), SpO2 98 %. General: patient is alert, cooperative, pleasant and in no acute distress On examination, the abdomen is benign. Assessment IMPRESSION: s/p colonoscopy with polypectomy-multiple adenomatous polyps PLAN: The operative findings and pathology report were reviewed with the patient, and the patient has had the opportunity to ask questions and have questions answered. If the patient notes any problems or changes in bowel function, the patient should contact me immediately. Otherwise I recommend follow up endoscopy in 3 years. HM updated and recall letter generated. Patient verbalized understanding of all above and agreed with the plan Diagnoses: (D36.9) Tubular adenoma (primary encounter diagnosis) I spent a total of 23 minutes on the date of the service which included preparing to see the patient, [id number] patient care, completing clinical documentation, obtaining and/or reviewing separately obtained history, counseling and educating the patient/family/caregiver, independently interpreting results (not separately reported), and communicating results to the patient/family/caregiver. Che Ríos PA-C documented in this encounter [facility] 06-03-2022 Instructions Che Ríos PA-C - 06/03/2022 9:08 AM EDT The following instructions are important for you related to your office visit today with the [facility] General Surgeons. INSTRUCTIONS FOLLOWING A POLYP FOUND AT COLONOSCOPY You were found to have adenomatous colon polyps. I recommend you undergo repeat endoscopy in 3 years. If you note bleeding, change in bowel habits, or other suspicious colon related symptoms before that time, those symptoms should be evaluated as necessary. If you have any difficulties or concerns, you should contact our office immediately. If you note any additional difficulties, questions, or concerns, you should contact our office immediately @ [phone] and ask to be transferred to the General Surgery department. documented in this encounter [facility] 06-01-2022 Miscellaneous Notes Patient walked into [facility] wanting stool culture results, states she was unable to return call Still having bloody diarrhea [facility] 500 mg every day x 3 days. Patient advised to follow up with Dr. Jeronimo for continued problems. Pricilla Sandoval APRN.CNP Patient given results and verbalized understanding of instructions given. Patient came into office/Pricilla Sandoval talked to her about results. Teresa Pratt Left another message to return call.Shazia Fang LPN I attempted to reach patient to advise of positive campylobacter result. No answer, voicemail left. If patient calls back please transfer to an Express [facility] provider. Treatment may be indicated depending on patient's condition. Shania Zheng APRN.DREAD documented in this encounter [facility] 05-28-2022 History of Presen t illness Narrative Subjective HPI HPI Marysol Pettit is a 67 year old female who presents today for CC of diarrhea with some blood. This started 5 days ago. Has tried otc medication without relief. Symptoms are worsened by nothing. Risk factors hx of blood in stool, had colonoscopy in January, not seen results yet. Has had blood in stool in past as well. Denies uri symptoms, fever, abd pain, rectal pain. Last void just before this visit. Reports taking in extra fluids. .Patient presents with: Diarrhea: With nausea and lower abd pain x5 days PAST MEDICAL HISTORY Diagnosis Date Adjustment disorder with anxious mood Aortic stenosis ASHD (arteriosclerotic heart disease) Dr. Quinones High blood pressure History of transfusion Hyperlipidemia Hyperparathyroidism (HCC) 1999 s/p parathyroidectomy Hypertension Lower extremity edema Obesity (BMI 30-39.9) PAST SURGICAL HISTORY Procedure Laterality Date ABDOMINAL SURGERY HX ANESTH, SECTION 1981 and 1983 [place] x2 APPENDECTOMY APPENDECTOMY HX F LIGATION TUBAL 1983 had tubal then reversal then BTL at time of c/s PARATHYROID 1999 removal of glands PAST SURGICAL HISTORY OF 2020 cyst removed from back VAGINAL HYSTERECTOMY VAGINAL HYSTERECTOMY UTERUS 250 GM/< 2009 WC-fibroid uterus/bleeding ALLERGIES Lisinopril, Simvastatin, and Zssysox-Ifr-Wwc Reductase Inhibitors MEDICATIONS hydroCHLOROthiazide (HYDRODIURIL, ESIDRIX) 25 mg tablet Take 1 tablet by mouth once daily. losartan (COZAAR) 50 mg tablet Take 1.5 tablets by mouth once daily. MULTI-VITAMIN ORAL Take by mouth once daily. Compression Knee Highs KNEE HIGH COMPRESSION STOCKINGS 20-30 MM. DX: EDEMA aspirin, enteric coated (ECOTRIN LOW STRENGTH) 81 mg EC tablet Take 1 tablet by mouth once daily. nitroglycerin sublingual (NITROQUICK) 0.4 mg SL tablet Dissolve 1 tablet under the tongue every 5 minutes as needed for Chest Pain. FAMILY HISTORY Problem Relation Age of Onset Blood Disease Mother lymphoma. Coronary Artery Disease Father has had stent placement Cancer Paternal Aunt ovarian Cancer Paternal Grandfather pt unsure of what kind Diabetes Maternal Grandmother Heart Maternal Grandmother Hypertension Maternal Grandmother Heart Maternal Grandfather from heart attack Hypertension Brother Social History Tobacco Use Smoking status: Never Passive exposure: Yes Smokeless tobacco: Never Tobacco comments: and son smoke, dad was a smoker. Vaping Use Vaping Use: Never used Substance Use Topics Alcohol use: Yes Comment: 1 drink 1-2 times per month Drug use: No ROS Objective Blood pressure 130/88, pulse 65, temperature 36.2 C (97.1 F), resp. rate 18, weight 83.5 kg (184 lb), SpO2 97 %. Physical Exam Constitutional: General: She is not in acute distress. Appearance: Normal appearance. She is not toxic-appearing. Cardiovascular: Rate and Rhythm: Normal rate and regular rhythm. Heart sounds: Normal heart sounds. Pulmonary: Effort: Pulmonary effort is normal. Breath sounds: Normal breath sounds. Abdominal: General: Bowel sounds are normal. Palpations: Abdomen is soft. Tenderness: There is no abdominal tenderness. Skin: General: Skin is warm and dry. ASSESSMENT/PLAN: 1. Diarrhea, unspecified type - ICD9: 787.91, ICD10: R19.7 Push fluids Will call results Urgent f/u for worsening s/s. - C. DIFFICILE PCR - OVA + PARA MICROSCOPIC - ENTERIC BACTERIAL PANEL BY PCR Agrees to plan Jose Miguel Singh APRN.DREAD documented in this encounter [facility] 05-02-2022 Nurse Note Arrived in phase II via cart. Left lateral position. Sedated, but responds to verbal stimuli. Color normal; skin warm and dlry. Respirations wnl and unlabored. Abdomen soft and with + bowel sounds in quads X 4. Patient resting comfortably. Franny Persaud RN documented in this encounter [facility] 05-02-2022 History and physical note UPDATED PROCEDURAL SEDATION HISTORY AND PHYSICAL EXAMINATION SERVICE DATE: 05/02/2022 SERVICE TIME: 9:37 PHYSICAL EXAM MUST BE COMPLETED ON ADMISSION PROCEDURE: colonoscopy, possible biopsies Procedure Indications: screening for colon cancer The History and Physical (completed in the past 30 days) has been reviewed and the patient has been examined. The contents accurately reflect the patient's condition with the following additions or revisions since the H&P was completed. ASA Class: ASA Class:: Patient with mild systemic disease Examination indicates no changes. AIRWAY: Airway Visualization of Uvula: Yes Mouth opening greater than 2 fingerbreadths: Yes Neck Full Range of Motion: Yes LUNGS: Lungs clear to auscultation CARDIAC: Regular rhythm,Regular rate Provisional Diagnosis/Treatment Plan: colonoscopy, possible biopsies SEDATION GOAL: Moderate This H&P can be found in the Electronic Medical Record. SIGNATURE: Kimberly Jaramillo MD PATIENT NAME: Marysol Pettit DATE: May 02, 2022 TIME: 9:38 AM Source Note - Kimberly Jaramillo MD - 05/02/2022 9:45 AM EDT HISTORY AND PHYSICAL Marysol Pettit 1955 REFERRING PHYSICIAN: Martha Jeronimo,* CHIEF COMPLAINT: Consult (colonoscopy) HPI: The patient is a 66 year old female referred for screening colonoscopy. Marysol notes no colon complaints. Patient denies any change in bowel habits, weight changes, black tarry stools or abdominal pain. Denies family history of colon issues. Patient NOTES mid abdominal bloating after eating and chronic throat irritation. Patient was actually evaluated in our office on 02/29/2020 for heme positive stool. Per my office note at that time: HPI: The patient is a 65 year old female referred for endoscopy due to heme positive stool. Patient appears angry in room with arms crossed, states nothing about the result was really discussed with her and that they just called me and gave me this appointment. She is upset citing cost of visit today and states she is not particularly interested in a colonoscopy as I can't afford it, also cites transportation issues. Patient denies any change in bowel habits, weight changes, blood in stools, black tarry stools or abdominal pain. Denies family history of colon issues. She does a life change recently as her last month and she has had significantly increased stress secondary to this. The patient notes no upper GI complaints. Marysol has not undergone prior endoscopy. Upper and lower endoscopy were recommended and offered to the patient at that time, however patient declined: PLAN: I have reviewed my findings with the surgeon. We recommended upper and lower endoscopy to the patient. Patient declined procedures. Patient first stated that she cannot afford procedures. Offered to set her up with patient financial counselor. She stated they won't help me since I have Medicare. She then stated I would need to be back by [address] my son from work. Discussed that she would not be allowed to drive after having sedation that day. Patient stated then I am not doing it and she stated this is why she had never had a colonoscopy in the past. Discussed risks of foregoing procedure and discussed that endoscopy is being recommended to rule out possible malignancy as a source of the heme positive stool. Patient verbalized understanding. 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 Patient notes she sent in her hemoccult test last year after having a hard stool. States will occasionally have bleeding from hemorrhoid after a hard BM. Patient states she is still unsure whether she will have procedure but is willing to consider it now. She again notes concerns about cost, wants to check on this ahead of time. PAST MEDICAL HISTORY PAST MEDICAL HISTORY Diagnosis Date Adjustment disorder with anxious mood Aortic stenosis ASHD (arteriosclerotic heart disease) Dr. Quinones High blood pressure Hyperlipidemia Hyperparathyroidism (HCC) 1999 s/p parathyroidectomy Hypertension Lower extremity edema Obesity (BMI 30-39.9) PAST SURGICAL HISTORY PAST SURGICAL HISTORY Procedure Laterality Date ANESTH, SECTION 1981 and 1983 [place] x2 APPENDECTOMY F LIGATION TUBAL 1983 had tubal then reversal then BTL at time of c/s PARATHYROID 1999 removal of glands PAST SURGICAL HISTORY OF 2020 cyst removed from back VAGINAL HYSTERECTOMY UTERUS 250 GM/< 2009 [facility]-fibroid uterus/bleeding CURRENT MEDICATIONS Current Outpatient Medications Medication Sig hydroCHLOROthiazide (HYDRODIURIL, ESIDRIX) 25 mg tablet Take 1 tablet by mouth once daily. losartan (COZAAR) 50 mg tablet Take 1.5 tablets by mouth once daily. MULTI-VITAMIN ORAL Take by mouth once daily. Compression Knee Highs KNEE HIGH COMPRESSION STOCKINGS 20-30 MM. DX: EDEMA aspirin, enteric coated (ECOTRIN LOW STRENGTH) 81 mg EC tablet Take 1 tablet by mouth once daily. nitroglycerin sublingual (NITROQUICK) 0.4 mg SL tablet Dissolve 1 tablet under the tongue every 5 minutes as needed for Chest Pain. No current facility-administered medications for this visit. ALLERGIES: Lisinopril, Simvastatin, and Zatkngl-Qtq-Xpr Reductase Inhibitors PERSONAL HISTORY: SOCIAL HISTORY Social History Tobacco Use Smoking status: Passive Smoke Exposure - Never Smoker Smokeless tobacco: Never Used Tobacco comment: and son smoke, dad was a smoker. Vaping Use Vaping Use: Never used Substance Use Topics Alcohol use: Yes Comment: 1 drink 1-2 times per month Drug use: No FAMILY HISTORY: FAMILY HISTORY FAMILY HISTORY Problem Relation Age of Onset Blood Disease Mother lymphoma. Coronary Artery Disease Father has had stent placement Cancer Paternal Aunt ovarian Cancer Paternal Grandfather pt unsure of what kind Diabetes Maternal Grandmother Heart Maternal Grandmother Hypertension Maternal Grandmother Heart Maternal Grandfather from heart attack Hypertension Brother REVIEW OF SYMPTOMS: The review of systems data was entered by the nurse and reviewed by ga Nursing Notes: Eva Alberto LPN 02/25/2022 9:40 AM Signed REVIEW OF SYSTEMS: General: The patient notes fatigue, denies weight loss, notes weight gain, denies feeling hot, and denies feelings of cold. Eyes: The patient denies glaucoma, denies eye injury/surgery, wears glasses or contacts. Ear/Nose/Throat: The patient notes allergies, denies hayfever, denies ear infections, and denies bloody noses. Cardiovascular: The patient denies chest pain, denies heart disease, notes high blood pressure,denies cardiac stent, denies prior heart attack, notes irregular heart beat, notes high cholesterol, denies poor circulation, denies heart failure, other cardiac issues, denies claudication, denies cold feet, denies peripheral arterial stent. Respiratory: The patient denies tuberculosis, denies pneumonia, notes frequent cough, denies pulmonary embolism, denies shortness of breath, and denies coughing up blood. Gastrointestinal: The patient denies difficulty swallowing, denies acid reflux, denies ulcers, denies vomiting, denies jaundice/hepatitis, denies gallbladder problems, denies black or tarry stools, denies hemorrhoids, denies bleeding from rectum, denies diverticulitis, denies constipation, denies diarrhea, denies loss of stool control, and denies hernias. Kidney/Bladder: The patient notes kidney stones, denies urine infections, and denies bloody urine. Skin: The patient denies a history of skin cancer, denies bleeding/changing moles, and denies a history of skin rash. Neurologic: The patient denies a history of epilepsy/convulsions, denies headaches, denies head/spinal injuries, and denies stroke/TIA. Psychiatric: The patient denies psychiatric medications, denies depression, and denies voices, denies substance abuse. Endocrine: The patient notes thyroid disorders, denies diabetes, and denies hormonal problems. Hematologic: The patient denies a history of bruising, denies bleeding, and denies anemia, denies blood clots. Infections: The patient notes a history of measles and mumps, denies rheumatic fever, and denies sexually transmitted diseases. Musculoskeletal: The patient notes back pain/injury, denies back problems, denies sciatica, denies knee/foot trouble, denies arthritis, or denies gout. When was patient's last Mammogram screening? 01/2022 Last Colonoscopy: none Eva Alberto LPN I have confirmed and edited as necessary, the PFSH and ROS obtained by others. Che Ríos PA-C PHYSICAL EXAMINATION: General: The patient is 66 year old female, well nourished, well hydrated in no acute distress. The patient is oriented to time, place, and person. VITALS: Blood pressure 140/90, pulse 86, temperature 36.1 C (96.9 F), height 152.4 cm (5'), weight 83.5 kg (184 lb), SpO2 98 %. There is no height or weight on file to calculate BMI. HEENT: Normal cephalic, ataumatic, pupils are equally round, sclera are anicteric, mucous membranes are moist, oropharynx is clear. Neck has no masses, asymmetry or lymphadenopathy. Respiratory: Clear to auscultation and percussion. Normal respiratory excursion and pattern. Cardiac: Examination is regular rate and rhythm. Normal S1/S2 Abdominal exam: Soft, nontender, with no palpable masses. No hepatosplenomegaly. No palpable hernias. Extremities: no clubbing, cyanosis or edema. No adenopathy. LABORATORY VALUES: As Noted RADIOLOGIC STUDIES: As Noted Assessment IMPRESSION: encounter for screening colonoscopy. Past history of heme positive stool a year ago, declined follow-up at that time. Upper abdominal bloating PLAN: I have reviewed my findings with the surgeon. Will plan for lower endoscopy. Offered EGD in addition to colonoscopy based on complaints of upper abdominal discomfort and bloating with eating-patient unsure about this and wants to check on cost. We discussed the risks and benefits of the planned endoscopy. I have informed the patient that complications can occur including failure to complete the endoscopy and perforation. The patient had the opportunity to ask questions concerning the planned endoscopy. My staff has also explained the procedure to the patient in understandable terms and has given the patient printed material concerning the procedure. The patient freely consents to surgery. The patient was offered a surgery/procedure at a [facility] facility. I have counseled the patient regarding the risk of exposure to and/or potential harm posed by the COVID-19 virus with having a surgery/procedure at this time versus the risk of delaying the surgery/procedure. It is not possible to know either the risk of delaying the surgery or procedure or chance of getting an infection with perfect accuracy, but a joint decision was made between the patient and myself to proceed at this time with endoscopy. I plan to use Golytely bowel preparation I have explained to the patient the difference between IV conscious sedation and MAC anesthesia - and I have offered either, according to the patient's wishes. I have explained that with IV conscious sedation there is no anesthesia provider available and therefore there is a limitation of the amount of IV medications that can be given and that the patient may wake up in the middle of the procedure and/or experience pain/discomfort during the procedure. Further discussion was done and the patient was given the opportunity to ask questions and all questions were answered. The patient chooses IV conscious sedation Diagnoses: (Z12.11) Encounter for screening for malignant neoplasm of colon (primary encounter diagnosis) (R14.0) Abdominal bloating (Z87.19) History of hemorrhoids Consultation requested by Dr. Jeronimo for an opinion regarding screening colonoscopy. My final recommendations will be communicated back to the requesting physician by way of shared Medical record or letter to requesting physician via US mail. Che Ríos PA-C HISTORY AND PHYSICAL Marysol Nielson Wilver 1955 REFERRING PHYSICIAN: Martha Jeronimo,* CHIEF COMPLAINT: Consult (colonoscopy) HPI: The patient is a 66 year old female referred for screening colonoscopy. Marysol notes no colon complaints. Patient denies any change in bowel habits, weight changes, black tarry stools or abdominal pain. Denies family history of colon issues. Patient NOTES mid abdominal bloating after eating and chronic throat irritation. Patient was actually evaluated in our office on 02/29/2020 for heme positive stool. Per my office note at that time: HPI: The patient is a 65 year old female referred for endoscopy due to heme positive stool. Patient appears angry in room with arms crossed, states nothing about the result was really discussed with her and that they just called me and gave me this appointment. She is upset citing cost of visit today and states she is not particularly interested in a colonoscopy as I can't afford it, also cites transportation issues. Patient denies any change in bowel habits, weight changes, blood in stools, black tarry stools or abdominal pain. Denies family history of colon issues. She does a life change recently as her last month and she has had significantly increased stress secondary to this. The patient notes no upper GI complaints. Marysol has not undergone prior endoscopy. Upper and lower endoscopy were recommended and offered to the patient at that time, however patient declined: PLAN: I have reviewed my findings with the surgeon. We recommended upper and lower endoscopy to the patient. Patient declined procedures. Patient first stated that she cannot afford procedures. Offered to set her up with patient financial counselor. She stated they won't help me since I have Medicare. She then stated I would need to be back by [address] my son from work. Discussed that she would not be allowed to drive after having sedation that day. Patient stated then I am not doing it and she stated this is why she had never had a colonoscopy in the past. Discussed risks of foregoing procedure and discussed that endoscopy is being recommended to rule out possible malignancy as a source of the heme positive stool. Patient verbalized understanding. 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 Patient notes she sent in her hemoccult test last year after having a hard stool. States will occasionally have bleeding from hemorrhoid after a hard BM. Patient states she is still unsure whether she will have procedure but is willing to consider it now. She again notes concerns about cost, wants to check on this ahead of time. PAST MEDICAL HISTORY PAST MEDICAL HISTORY Diagnosis Date Adjustment disorder with anxious mood Aortic stenosis ASHD (arteriosclerotic heart disease) Dr. Quinones High blood pressure Hyperlipidemia Hyperparathyroidism (HCC) 1999 s/p parathyroidectomy Hypertension Lower extremity edema Obesity (BMI 30-39.9) PAST SURGICAL HISTORY PAST SURGICAL HISTORY Procedure Laterality Date ANESTH, SECTION 1981 and 1983 [place] x2 APPENDECTOMY F LIGATION TUBAL 1983 had tubal then reversal then BTL at time of c/s PARATHYROID 1999 removal of glands PAST SURGICAL HISTORY OF 2020 cyst removed from back VAGINAL HYSTERECTOMY UTERUS 250 GM/< 2009 [facility]-fibroid uterus/bleeding CURRENT MEDICATIONS Current Outpatient Medications Medication Sig hydroCHLOROthiazide (HYDRODIURIL, ESIDRIX) 25 mg tablet Take 1 tablet by mouth once daily. losartan (COZAAR) 50 mg tablet Take 1.5 tablets by mouth once daily. MULTI-VITAMIN ORAL Take by mouth once daily. Compression Knee Highs KNEE HIGH COMPRESSION STOCKINGS 20-30 MM. DX: EDEMA aspirin, enteric coated (ECOTRIN LOW STRENGTH) 81 mg EC tablet Take 1 tablet by mouth once daily. nitroglycerin sublingual (NITROQUICK) 0.4 mg SL tablet Dissolve 1 tablet under the tongue every 5 minutes as needed for Chest Pain. No current facility-administered medications for this visit. ALLERGIES: Lisinopril, Simvastatin, and Eiehjlq-Ttj-Zri Reductase Inhibitors PERSONAL HISTORY: SOCIAL HISTORY Social History Tobacco Use Smoking status: Passive Smoke Exposure - Never Smoker Smokeless tobacco: Never Used Tobacco comment: and son smoke, dad was a smoker. Vaping Use Vaping Use: Never used Substance Use Topics Alcohol use: Yes Comment: 1 drink 1-2 times per month Drug use: No FAMILY HISTORY: FAMILY HISTORY FAMILY HISTORY Problem Relation Age of Onset Blood Disease Mother lymphoma. Coronary Artery Disease Father has had stent placement Cancer Paternal Aunt ovarian Cancer Paternal Grandfather pt unsure of what kind Diabetes Maternal Grandmother Heart Maternal Grandmother Hypertension Maternal Grandmother Heart Maternal Grandfather from heart attack Hypertension Brother REVIEW OF SYMPTOMS: The review of systems data was entered by the nurse and reviewed by me Nursing Notes: Eva Alberto LPN 02/25/2022 9:40 AM Signed REVIEW OF SYSTEMS: General: The patient notes fatigue, denies weight loss, notes weight gain, denies feeling hot, and denies feelings of cold. Eyes: The patient denies glaucoma, denies eye injury/surgery, wears glasses or contacts. Ear/Nose/Throat: The patient notes allergies, denies hayfever, denies ear infections, and denies bloody noses. Cardiovascular: The patient denies chest pain, denies heart disease, notes high blood pressure,denies cardiac stent, denies prior heart attack, notes irregular heart beat, notes high cholesterol, denies poor circulation, denies heart failure, other cardiac issues, denies claudication, denies cold feet, denies peripheral arterial stent. Respiratory: The patient denies tuberculosis, denies pneumonia, notes frequent cough, denies pulmonary embolism, denies shortness of breath, and denies coughing up blood. Gastrointestinal: The patient denies difficulty swallowing, denies acid reflux, denies ulcers, denies vomiting, denies jaundice/hepatitis, denies gallbladder problems, denies black or tarry stools, denies hemorrhoids, denies bleeding from rectum, denies diverticulitis, denies constipation, denies diarrhea, denies loss of stool control, and denies hernias. Kidney/Bladder: The patient notes kidney stones, denies urine infections, and denies bloody urine. Skin: The patient denies a history of skin cancer, denies bleeding/changing moles, and denies a history of skin rash. Neurologic: The patient denies a history of epilepsy/convulsions, denies headaches, denies head/spinal injuries, and denies stroke/TIA. Psychiatric: The patient denies psychiatric medications, denies depression, and denies voices, denies substance abuse. Endocrine: The patient notes thyroid disorders, denies diabetes, and denies hormonal problems. Hematologic: The patient denies a history of bruising, denies bleeding, and denies anemia, denies blood clots. Infections: The patient notes a history of measles and mumps, denies rheumatic fever, and denies sexually transmitted diseases. Musculoskeletal: The patient notes back pain/injury, denies back problems, denies sciatica, denies knee/foot trouble, denies arthritis, or denies gout. When was patient's last Mammogram screening? 01/2022 Last Colonoscopy: none Eva Alberto LPN I have confirmed and edited as necessary, the PFSH and ROS obtained by others. Che Ríos PA-C PHYSICAL EXAMINATION: General: The patient is 66 year old female, well nourished, well hydrated in no acute distress. The patient is oriented to time, place, and person. VITALS: Blood pressure 140/90, pulse 86, temperature 36.1 C (96.9 F), height 152.4 cm (5'), weight 83.5 kg (184 lb), SpO2 98 %. There is no height or weight on file to calculate BMI. HEENT: Normal cephalic, ataumatic, pupils are equally round, sclera are anicteric, mucous membranes are moist, oropharynx is clear. Neck has no masses, asymmetry or lymphadenopathy. Respiratory: Clear to auscultation and percussion. Normal respiratory excursion and pattern. Cardiac: Examination is regular rate and rhythm. Normal S1/S2 Abdominal exam: Soft, nontender, with no palpable masses. No hepatosplenomegaly. No palpable hernias. Extremities: no clubbing, cyanosis or edema. No adenopathy. LABORATORY VALUES: As Noted RADIOLOGIC STUDIES: As Noted Assessment IMPRESSION: encounter for screening colonoscopy. Past history of heme positive stool a year ago, declined follow-up at that time. Upper abdominal bloating PLAN: I have reviewed my findings with the surgeon. Will plan for lower endoscopy. Offered EGD in addition to colonoscopy based on complaints of upper abdominal discomfort and bloating with eating-patient unsure about this and wants to check on cost. We discussed the risks and benefits of the planned endoscopy. I have informed the patient that complications can occur including failure to complete the endoscopy and perforation. The patient had the opportunity to ask questions concerning the planned endoscopy. My staff has also explained the procedure to the patient in understandable terms and has given the patient printed material concerning the procedure. The patient freely consents to surgery. The patient was offered a surgery/procedure at a [facility] facility. I have counseled the patient regarding the risk of exposure to and/or potential harm posed by the COVID-19 virus with having a surgery/procedure at this time versus the risk of delaying the surgery/procedure. It is not possible to know either the risk of delaying the surgery or procedure or chance of getting an infection with perfect accuracy, but a joint decision was made between the patient and myself to proceed at this time with endoscopy. I plan to use Golytely bowel preparation I have explained to the patient the difference between IV conscious sedation and MAC anesthesia - and I have offered either, according to the patient's wishes. I have explained that with IV conscious sedation there is no anesthesia provider available and therefore there is a limitation of the amount of IV medications that can be given and that the patient may wake up in the middle of the procedure and/or experience pain/discomfort during the procedure. Further discussion was done and the patient was given the opportunity to ask questions and all questions were answered. The patient chooses IV conscious sedation Diagnoses: (Z12.11) Encounter for screening for malignant neoplasm of colon (primary encounter diagnosis) (R14.0) Abdominal bloating (Z87.19) History of hemorrhoids Consultation requested by Dr. Jeronimo for an opinion regarding screening colonoscopy. My final recommendations will be communicated back to the requesting physician by way of shared Medical record or letter to requesting physician via US mail. Che Ríos PA-C documented in this encounter [facility] 03-03-2022 Miscellaneous Notes Last office visit: 12/13/21 F/u scheduled: 06/16/22 Moni Butterfield Ma Patient has been identified by name and date of : Yes Pending Prescriptions Disp Refills HYDROCHLOROTHIAZIDE 25 MG TABLET 90 tablet 1 Sig: Take 1 tablet by mouth once daily. PHILOMENA: No LOSARTAN 50 MG TABLET 135 tablet 1 Sig: Take 1.5 tablets by mouth once daily. PHILOMENA: No RX INSTRUCTIONS: Patient aware RX will be sent to pharmacy. No need to notify patient. Gina Rogers Pss documented in this encounter [facility] 02-25-2022 Nurse Note REVIEW OF SYSTEMS: General: The patient notes fatigue, denies weight loss, notes weight gain, denies feeling hot, and denies feelings of cold. Eyes: The patient denies glaucoma, denies eye injury/surgery, wears glasses or contacts. Ear/Nose/Throat: The patient notes allergies, denies hayfever, denies ear infections, and denies bloody noses. Cardiovascular: The patient denies chest pain, denies heart disease, notes high blood pressure,denies cardiac stent, denies prior heart attack, notes irregular heart beat, notes high cholesterol, denies poor circulation, denies heart failure, other cardiac issues, denies claudication, denies cold feet, denies peripheral arterial stent. Respiratory: The patient denies tuberculosis, denies pneumonia, notes frequent cough, denies pulmonary embolism, denies shortness of breath, and denies coughing up blood. Gastrointestinal: The patient denies difficulty swallowing, denies acid reflux, denies ulcers, denies vomiting, denies jaundice/hepatitis, denies gallbladder problems, denies black or tarry stools, denies hemorrhoids, denies bleeding from rectum, denies diverticulitis, denies constipation, denies diarrhea, denies loss of stool control, and denies hernias. Kidney/Bladder: The patient notes kidney stones, denies urine infections, and denies bloody urine. Skin: The patient denies a history of skin cancer, denies bleeding/changing moles, and denies a history of skin rash. Neurologic: The patient denies a history of epilepsy/convulsions, denies headaches, denies head/spinal injuries, and denies stroke/TIA. Psychiatric: The patient denies psychiatric medications, denies depression, and denies voices, denies substance abuse. Endocrine: The patient notes thyroid disorders, denies diabetes, and denies hormonal problems. Hematologic: The patient denies a history of bruising, denies bleeding, and denies anemia, denies blood clots. Infections: The patient notes a history of measles and mumps, denies rheumatic fever, and denies sexually transmitted diseases. Musculoskeletal: The patient notes back pain/injury, denies back problems, denies sciatica, denies knee/foot trouble, denies arthritis, or denies gout. When was patient's last Mammogram screening? 01/2022 Last Colonoscopy: none Eva Alberto LPN documented in this encounter [facility] 02-25-2022 History of Presen t illness Narrative HISTORY AND PHYSICAL Marysol Nielson Wilver 1955 REFERRING PHYSICIAN: Martha Jeronimo,* CHIEF COMPLAINT: Consult (colonoscopy) HPI: The patient is a 66 year old female referred for screening colonoscopy. Marysol notes no colon complaints. Patient denies any change in bowel habits, weight changes, black tarry stools or abdominal pain. Denies family history of colon issues. Patient NOTES mid abdominal bloating after eating and chronic throat irritation. Patient was actually evaluated in our office on 02/29/2020 for heme positive stool. Per my office note at that time: HPI: The patient is a 65 year old female referred for endoscopy due to heme positive stool. Patient appears angry in room with arms crossed, states nothing about the result was really discussed with her and that they just called me and gave me this appointment. She is upset citing cost of visit today and states she is not particularly interested in a colonoscopy as I can't afford it, also cites transportation issues. Patient denies any change in bowel habits, weight changes, blood in stools, black tarry stools or abdominal pain. Denies family history of colon issues. She does a life change recently as her last month and she has had significantly increased stress secondary to this. The patient notes no upper GI complaints. Marysol has not undergone prior endoscopy. Upper and lower endoscopy were recommended and offered to the patient at that time, however patient declined: PLAN: I have reviewed my findings with the surgeon. We recommended upper and lower endoscopy to the patient. Patient declined procedures. Patient first stated that she cannot afford procedures. Offered to set her up with patient financial counselor. She stated they won't help me since I have Medicare. She then stated I would need to be back by [address] my son from work. Discussed that she would not be allowed to drive after having sedation that day. Patient stated then I am not doing it and she stated this is why she had never had a colonoscopy in the past. Discussed risks of foregoing procedure and discussed that endoscopy is being recommended to rule out possible malignancy as a source of the heme positive stool. Patient verbalized understanding. 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 Patient notes she sent in her hemoccult test last year after having a hard stool. States will occasionally have bleeding from hemorrhoid after a hard BM. Patient states she is still unsure whether she will have procedure but is willing to consider it now. She again notes concerns about cost, wants to check on this ahead of time. PAST MEDICAL HISTORY Diagnosis Date Adjustment disorder with anxious mood Aortic stenosis ASHD (arteriosclerotic heart disease) Dr. Quinones High blood pressure Hyperlipidemia Hyperparathyroidism (HCC) 1999 s/p parathyroidectomy Hypertension Lower extremity edema Obesity (BMI 30-39.9) PAST SURGICAL HISTORY Procedure Laterality Date ANESTH, SECTION 1981 and 1983 [place] x2 APPENDECTOMY F LIGATION TUBAL 1983 had tubal then reversal then BTL at time of c/s PARATHYROID 1999 removal of glands PAST SURGICAL HISTORY OF 2020 cyst removed from back VAGINAL HYSTERECTOMY UTERUS 250 GM/< 2009 [facility]-fibroid uterus/bleeding Current Outpatient Medications Medication Sig hydroCHLOROthiazide (HYDRODIURIL, ESIDRIX) 25 mg tablet Take 1 tablet by mouth once daily. losartan (COZAAR) 50 mg tablet Take 1.5 tablets by mouth once daily. MULTI-VITAMIN ORAL Take by mouth once daily. Compression Knee Highs KNEE HIGH COMPRESSION STOCKINGS 20-30 MM. DX: EDEMA aspirin, enteric coated (ECOTRIN LOW STRENGTH) 81 mg EC tablet Take 1 tablet by mouth once daily. nitroglycerin sublingual (NITROQUICK) 0.4 mg SL tablet Dissolve 1 tablet under the tongue every 5 minutes as needed for Chest Pain. No current facility-administered medications for this visit. ALLERGIES: Lisinopril, Simvastatin, and Pkckocf-Jvo-Hfk Reductase Inhibitors PERSONAL HISTORY: Social History Tobacco Use Smoking status: Passive Smoke Exposure - Never Smoker Smokeless tobacco: Never Used Tobacco comment: and son smoke, dad was a smoker. Vaping Use Vaping Use: Never used Substance Use Topics Alcohol use: Yes Comment: 1 drink 1-2 times per month Drug use: No FAMILY HISTORY: FAMILY HISTORY Problem Relation Age of Onset Blood Disease Mother lymphoma. Coronary Artery Disease Father has had stent placement Cancer Paternal Aunt ovarian Cancer Paternal Grandfather pt unsure of what kind Diabetes Maternal Grandmother Heart Maternal Grandmother Hypertension Maternal Grandmother Heart Maternal Grandfather from heart attack Hypertension Brother REVIEW OF SYMPTOMS: The review of systems data was entered by the nurse and reviewed by ga Nursing Notes: Eva AlbertoJUDY 02/25/2022 9:40 AM Signed REVIEW OF SYSTEMS: General: The patient notes fatigue, denies weight loss, notes weight gain, denies feeling hot, and denies feelings of cold. Eyes: The patient denies glaucoma, denies eye injury/surgery, wears glasses or contacts. Ear/Nose/Throat: The patient notes allergies, denies hayfever, denies ear infections, and denies bloody noses. Cardiovascular: The patient denies chest pain, denies heart disease, notes high blood pressure,denies cardiac stent, denies prior heart attack, notes irregular heart beat, notes high cholesterol, denies poor circulation, denies heart failure, other cardiac issues, denies claudication, denies cold feet, denies peripheral arterial stent. Respiratory: The patient denies tuberculosis, denies pneumonia, notes frequent cough, denies pulmonary embolism, denies shortness of breath, and denies coughing up blood. Gastrointestinal: The patient denies difficulty swallowing, denies acid reflux, denies ulcers, denies vomiting, denies jaundice/hepatitis, denies gallbladder problems, denies black or tarry stools, denies hemorrhoids, denies bleeding from rectum, denies diverticulitis, denies constipation, denies diarrhea, denies loss of stool control, and denies hernias. Kidney/Bladder: The patient notes kidney stones, denies urine infections, and denies bloody urine. Skin: The patient denies a history of skin cancer, denies bleeding/changing moles, and denies a history of skin rash. Neurologic: The patient denies a history of epilepsy/convulsions, denies headaches, denies head/spinal injuries, and denies stroke/TIA. Psychiatric: The patient denies psychiatric medications, denies depression, and denies voices, denies substance abuse. Endocrine: The patient notes thyroid disorders, denies diabetes, and denies hormonal problems. Hematologic: The patient denies a history of bruising, denies bleeding, and denies anemia, denies blood clots. Infections: The patient notes a history of measles and mumps, denies rheumatic fever, and denies sexually transmitted diseases. Musculoskeletal: The patient notes back pain/injury, denies back problems, denies sciatica, denies knee/foot trouble, denies arthritis, or denies gout. When was patient's last Mammogram screening? 01/2022 Last Colonoscopy: none Eva Alberto LPN I have confirmed and edited as necessary, the PFSH and ROS obtained by others. Che Ríos PA-C PHYSICAL EXAMINATION: General: The patient is 66 year old female, well nourished, well hydrated in no acute distress. The patient is oriented to time, place, and person. VITALS: Blood pressure 140/90, pulse 86, temperature 36.1 C (96.9 F), height 152.4 cm (5'), weight 83.5 kg (184 lb), SpO2 98 %. There is no height or weight on file to calculate BMI. HEENT: Normal cephalic, ataumatic, pupils are equally round, sclera are anicteric, mucous membranes are moist, oropharynx is clear. Neck has no masses, asymmetry or lymphadenopathy. Respiratory: Clear to auscultation and percussion. Normal respiratory excursion and pattern. Cardiac: Examination is regular rate and rhythm. Normal S1/S2 Abdominal exam: Soft, nontender, with no palpable masses. No hepatosplenomegaly. No palpable hernias. Extremities: no clubbing, cyanosis or edema. No adenopathy. LABORATORY VALUES: As Noted RADIOLOGIC STUDIES: As Noted Assessment IMPRESSION: encounter for screening colonoscopy. Past history of heme positive stool a year ago, declined follow-up at that time. Upper abdominal bloating PLAN: I have reviewed my findings with the surgeon. Will plan for lower endoscopy. Offered EGD in addition to colonoscopy based on complaints of upper abdominal discomfort and bloating with eating-patient unsure about this and wants to check on cost. We discussed the risks and benefits of the planned endoscopy. I have informed the patient that complications can occur including failure to complete the endoscopy and perforation. The patient had the opportunity to ask questions concerning the planned endoscopy. My staff has also explained the procedure to the patient in understandable terms and has given the patient printed material concerning the procedure. The patient freely consents to surgery. The patient was offered a surgery/procedure at a [facility] facility. I have counseled the patient regarding the risk of exposure to and/or potential harm posed by the COVID-19 virus with having a surgery/procedure at this time versus the risk of delaying the surgery/procedure. It is not possible to know either the risk of delaying the surgery or procedure or chance of getting an infection with perfect accuracy, but a joint decision was made between the patient and myself to proceed at this time with endoscopy. I plan to use Golytely bowel preparation I have explained to the patient the difference between IV conscious sedation and MAC anesthesia - and I have offered either, according to the patient's wishes. I have explained that with IV conscious sedation there is no anesthesia provider available and therefore there is a limitation of the amount of IV medications that can be given and that the patient may wake up in the middle of the procedure and/or experience pain/discomfort during the procedure. Further discussion was done and the patient was given the opportunity to ask questions and all questions were answered. The patient chooses IV conscious sedation Diagnoses: (Z12.11) Encounter for screening for malignant neoplasm of colon (primary encounter diagnosis) (R14.0) Abdominal bloating (Z87.19) History of hemorrhoids Consultation requested by Dr. Jeronimo for an opinion regarding screening colonoscopy. My final recommendations will be communicated back to the requesting physician by way of shared Medical record or letter to requesting physician via US mail. Che Ríos PA-C documented in this encounter [facility] 02-05-2022 Miscellaneous Notes SCHEDULED 02/25/2022 Patient due for screening colonoscopy . Patient is not appropriate for open access. Please schedule office consult Usama Hill documented in this encounter [facility] 01-14-2022 History of Presen t illness Narrative Radiology Service Progress Note PATIENT NAME: Marysol Pettit DATE OF SERVICE: January 14, 2022 TIME: 2:49 PM PATIENT IDENTITY VERIFICATION COMPLETED USING TWO (2) IDENTIFIERS: Name and Date of confirmed by patient verbally. FALL SCREENING: Has the patient had 2 falls in the last year or 1 fall with injury or currently using an Ambulatory Assistive Device (Walker, Cane, Wheelchair, Crutches, etc.)? No PATIENT GENDER DATA: Female. status: : No status: NO. PATIENT RELEVANT IMPLANT DATA REVIEWED: Not Applicable RADIOLOGY DEPARTMENT: Mammography PERIPHERAL IV DATA: Not applicable SIGNED BY: RT Daniel(R) January 14, 2022 2:49 PM documented in this encounter [facility] 12-17-2021 Miscellaneous Notes Patient notified of results and provider's instructions. Patient verbalizes understanding. Denice Rivera RN Left message to call office. 12/17/2021 2:59 PM Edward Spangler Ma Called and left a voicemail for the Patient to call back and ask for a nurse to receive the providers message. Che Miranda RN Please call patient and let her know her blood work is normal. Continue current medications. Marible Rebolledo APRN.DEEP SEA DIVER documented in this encounter [facility] 12-17-2021 Miscellaneous Notes Patient calling to request her recent lab results be mailed to her. Address verified. Information submitted to internal audit director area. Layne Hudson RN documented in this encounter [facility] 12-13-2021 History of Presen t illness Narrative Chief Complaint Patient presents with: Recheck HPI Marysol Pettit is a 66 year old female who presents here today for routine follow up. Patient states that she has been in good health since her last OV without hospitalizations or ER visits. BP well controlled on Losartan and HCTZ. ASHD: Managed by Dr. Quinones's office with last OV in July. No changes to regimen at that time. Stress test 12/2019 negative for ischemia. Taking Zetia for cholesterol since she cannot tolerate statin. Due for repeat lipid panel today. Prediabetes: states that she has not been following low carb diet. Does walk dog short distances for exercise about 4-5 times per day. Due for A1C. Notes occasional gas and bloating in her stomach with some pain in her back. Does not have pain today. Treating with OTC gas medications which does help with pain. Is not aware of specific foods that trigger her symptoms. Past medical history, appointments, medications, allergies reviewed. Previous Medical History PAST MEDICAL HISTORY Diagnosis Date Adjustment disorder with anxious mood Aortic stenosis ASHD (arteriosclerotic heart disease) Dr. Quinones High blood pressure Hyperlipidemia Hyperparathyroidism (HCC) 1999 s/p parathyroidectomy Hypertension Lower extremity edema Obesity (BMI 30-39.9) Previous Surgical History PAST SURGICAL HISTORY Procedure Laterality Date ANESTH, SECTION 1981 and 1983 [place] x2 APPENDECTOMY F LIGATION TUBAL 1983 had tubal then reversal then BTL at time of c/s PARATHYROID 2000 removal of glands VAGINAL HYSTERECTOMY UTERUS 250 GM/< 2009 [facility]-fibroid uterus/bleeding Family History FAMILY HISTORY Problem Relation Age of Onset Blood Disease Mother lymphoma. Coronary Artery Disease Father has had stent placement Cancer Paternal Aunt ovarian Cancer Paternal Grandfather pt unsure of what kind Diabetes Maternal Grandmother Heart Maternal Grandmother Hypertension Maternal Grandmother Heart Maternal Grandfather from heart attack Hypertension Brother Patient Allergies ALLERGIES Allergen Reactions Lisinopril Cough ACEi cough. Simvastatin Other: See Comments Worsening anxiety Yvrtibr-Bnw-Wez Red* Myalgia Patient does not want to take any statin Current Medications Current Outpatient Medications on File Prior to Visit Medication Sig ezetimibe (ZETIA) 10 mg tablet Take 1 tablet by mouth once daily. hydroCHLOROthiazide (HYDRODIURIL, ESIDRIX) 25 mg tablet Take 1 tablet by mouth once daily. losartan (COZAAR) 50 mg tablet Take 1.5 tablets by mouth once daily. zinc sulfate (ZINC-220 ORAL) Take 1 tablet by mouth once daily. VITAMIN B COMPLEX ORAL Take by mouth. cholecalciferol, vitamin D3, (VITAMIN D3 ORAL) Take by mouth. MULTI-VITAMIN ORAL Take by mouth. Compression Knee Highs KNEE HIGH COMPRESSION STOCKINGS 20-30 MM. DX: EDEMA aspirin, enteric coated (ECOTRIN LOW STRENGTH) 81 mg EC tablet Take 1 tablet by mouth once daily. nitroglycerin sublingual (NITROQUICK) 0.4 mg SL tablet Dissolve 1 tablet under the tongue every 5 minutes as needed for Chest Pain. peg 3350-Electrolytes (GOLYTELY) 236-22.74-6.74 -5.86 gram suspension Refer to printed prep instructions from your provider. fluticasone (FLONASE) 50 mcg/actuation nasal spray Use 2 Sprays in each nostril once daily. Rinse mouth after use. (Patient not taking: Reported on 07/19/2021 ) No current facility-administered medications on file prior to visit. Social History Social History Tobacco Use Smoking status: Passive Smoke Exposure - Never Smoker Smokeless tobacco: Never Used Tobacco comment: and son smoke, dad was a smoker. Vaping Use Vaping Use: Never used Substance Use Topics Alcohol use: Yes Comment: 1 drink 1-2 times per month Drug use: No Review of Symptoms REVIEW OF SYSTEMS GENERAL: No weight loss, malaise or fevers RESPIRATORY: Negative for cough, hemoptysis, wheezing, COPD, dyspnea or shortness of breath CARDIOVASCULAR: Negative for chest pain, leg swelling, hypertension, CHF or palpitations GI: No nausea, vomiting, or diarrhea SKIN: Negative for lesions, rash, and itching EXAM: BP 118/72 Pulse (!) 56 Resp 18 Ht 151.5 cm (4' 11.65 ) Wt 83 kg (183 lb) SpO2 95% BMI 36.17 kg/m General Appearance: Well appearing, alert, in no acute distress, well-hydrated, well nourished.. Skin: Skin color, texture, turgor normal, no suspicious rashes or lesions. Lungs: Lungs clear to auscultation. No wheezing, rhonchi, rales.. Heart: RRR without murmur, gallop, or rubs. No ectopy. Abdomen: Normal abdominal exam, Abdomen soft, non-tender. Bowel sounds normal. No masses, organomegaly. Extremities: Edema: Trace to 1+ edema to mid sandoval bilaterally. Health Maintenance List COLORECTAL CANCER SCREENING due on 02/15/2021 ADVANCE DIRECTIVE DISCUSSION Never done PNEUMOVAX AGE 65 AND OVER WITH 5YR LOOKBACK(1) due on 02/12/2022 SHINGRIX VACCINE(1 of 2) due on 02/12/2022 COVID-19 VACCINE(1) due on 02/12/2022 BP CONTROLLED (<130/80) due on 02/15/2022 INFLUENZA(Season Ended) due on 04/03/2022 LDL CHOLESTEROL due on 07/31/2022 ANNUAL PCP TEAM CHRONIC DISEASE VISIT due on 07/31/2022 MAMMOGRAM due on 12/09/2022 DTAP,TDAP,TD(2 - Td or Tdap) due on 01/03/2024 DIABETES SCREEN due on 07/31/2024 LIPID SCREEN due on 07/31/2026 BONE DENSITY Completed HEPATITIS C SCREENING Completed MENINGOCOCCAL CONJUGATE Aged Out Data reviewed Component Latest Ref Rng & Units 07/31/2021 Protein, Total 6.3 - 8.0 g/dL 6.4 Albumin 3.9 - 4.9 g/dL 4.2 Calcium 8.5 - 10.2 mg/dL 9.2 Bilirubin, Total 0.2 - 1.3 mg/dL 0.3 Alkaline Phosphatase 34 - 123 U/L 68 AST 13 - 35 U/L 23 Glucose 74 - 99 mg/dL 93 BUN 7 - 21 mg/dL 15 Creatinine 0.58 - 0.96 mg/dL 0.65 Sodium 136 - 144 mmol/L 140 Potassium 3.7 - 5.1 mmol/L 4.0 Chloride 97 - 105 mmol/L 105 CO2 22 - 30 mmol/L 25 Anion Gap 9 - 18 mmol/L 10 ALT 7 - 38 U/L 23 eGFR- >60 eGFR-All Other Races . >60 Cholesterol, Total <200 mg/dL 190 Triglyceride <150 mg/dL 85 HDL Cholesterol >39 mg/dL 51 LDL Cholesterol <100 mg/dL 122 (H) Non HDL Cholesterol <130 mg/dL 139 (H) Fasting Time hrs 10 VLDL Cholesterol <30 mg/dL 17 TC:HDL Ratio <5.10 3.73 LDL:HDL Ratio <2.54 2.39 ASSESSMENT/PLAN: 1. Essential hypertension - ICD9: 401.9, ICD10: I10 (primary diagnosis) - good control - Continue current medication(s) - Encouraged dietary sodium restriction/DASH diet - Recommended regular aerobic exercise. - Reviewed risks of HTN and principles of treatment - Goal of BP <140/90 2. ASHD (arteriosclerotic heart disease) - ICD9: 414.00, ICD10: I25.10 Asymptomatic on medical management. Keep follow up appointment with cardiology as recommended. 3. Hyperlipidemia, mixed - ICD9: 272.2, ICD10: E78.2 - to be determined upon return of lab results - Continue current medication. - Encouraged following a low fat, low cholesterol diet. - Discussed the benefits of regular aerobic exercise and weight loss. - LIPID PANEL, NONFASTING - COMP METABOLIC PANEL 4. Prediabetes - ICD9: 790.29, ICD10: R73.03 Recheck A1c. Given booklet for home and discussed importance of low carb diet, exercise, weight loss. - HGB A1C 5. Lower extremity edema - ICD9: 782.3, ICD10: R60.0 Discussed low sodium diet, leg elevation when resting, and will start compression stockings daily. - COMPRESSION STOCKINGS 6. Abdominal gas pain - ICD9: 787.3, ICD10: R14.1 Normal exam today. Encouraged patient to keep food diary for possible triggers and avoid identified triggers. Call if symptoms worsen or change. 7. Obesity (BMI 30-39.9) - ICD9: 278.00, ICD10: E66.9 Weight decreasing - Behavioral intervention Martha Jeronimo MD documented in this encounter [facility] 12-10-2021 Miscellaneous Notes 1st attempt - LVM for patient to call back and schedule diagnostic mammogram Please contact the patient to schedule an appointment. Appointment specifications include: WHY does the patient need to be seen? Diagnostic mamm WHO should the patient schedule the appointment with? Estela Tech WHAT specific type of appointment is needed? Radiology visit WHEN should the patient be seen? First available appointment WHERE should the patient be seen? In Office Patient notified of results. Please assist patient with scheduling US. Jamila Charles MA Please call patient and le her know her mammogram shows an asymmetry in the left breast and they are recommending additional views. Orders in place, please assist in scheduling. Maribel Rebolledo APRN.CNP documented in this encounter [facility] 12-09-2021 Miscellaneous Notes December 09, 2021 PID: [id number] Marysol Pettit [address] [place] [address] Dear Ms. Pettit, Your recent breast imaging exam on 12/09/2021 showed a possible finding that requires additional imaging studies for a complete evaluation. Most such findings are probably benign (not cancer). If you have a healthcare provider who ordered/prescribed your screening mammogram: Please call [phone] or [phone]: [phone] to schedule an appointment for your additional imaging (if you have not already done so). If you DO NOT have a healthcare provider (ie you did not have an order/prescription for your screening mammogram): Please call to schedule an appointment for your additional imaging (if you have not already done so). You must have an order/prescription from your physician when calling to schedule your appointment. If your order/prescription is not electronic, you must bring the hard copy with you on the day of your exam to avoid delays. Your imaging studies and reports are kept on file at [facility] as part of your permanent medical record, and are available for your continuing care. Thank you for allowing us to help in meeting your health care needs. Sincerely, Dr. Haro Interpreting Radiologist [facility] (Additional imaging) documented in this encounter [facility] 11-29-2021 Miscellaneous Notes TRICE 07/31/2021 Appointment scheduled for 12/13/2021 Please advise. Thank you. Patient has been identified by name and date of : Yes Pending Prescriptions Disp Refills EZETIMIBE 10 MG TABLET 30 tablet 2 Sig: Take 1 tablet by mouth once daily. PHILOMENA: No RX INSTRUCTIONS: Patient aware RX will be sent to pharmacy. No need to notify patient. Gina Rogers Pss documented in this encounter [facility] Diagnosis Abnormal mammogram Abnormal mammogram, unspecified [facility] Diagnosis Abnormal mammogram- Primary Abnormal mammogram, unspecified [facility] Diagnosis Encounter for screening for malignant neoplasm of colon- Primary Special screening for malignant neoplasms, colon Abdominal bloating Flatulence, eructation, and gas pain History of hemorrhoids Personal history of other specified diseases [facility] Diagnosis Essential hypertension Unspecified essential hypertension [facility] Diagnosis Screening for colon cancer- Primary Special screening for malignant neoplasms, colon Screening for cancer of oral cavity Screening for malignant neoplasm of the oral cavity [facility] Diagnosis Diarrhea, unspecified type- Primary [facility] Diagnosis Tubular adenoma- Primary Benign neoplasm of unspecified site [facility] Diagnosis Bilateral dry eyes- Primary Tear film insufficiency, unspecified 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-related cataract, both eyes [facility] Diagnosis Essential hypertension Unspecified essential hypertension [facility]* Diagnosis Bilateral dry eyes- Primary Tear film insufficiency, unspecified 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-related cataract, both eyes Hypermetropia, bilateral Regular astigmatism of both eyes Regular astigmatism Presbyopia [facility]* Diagnosis Essential hypertension- Primary Unspecified essential hypertension Statin declined Bradycardia Other specified cardiac dysrhythmias Hyperlipidemia, mixed Mixed hyperlipidemia Obesity (BMI 30-39.9) Obesity, unspecified ASHD (arteriosclerotic heart disease) Coronary atherosclerosis of unspecified type of vessel, [place] or graft [facility] Diagnosis Elevated TSH- Primary Nonspecific abnormal results of thyroid function study documented in this encounter [facility] for referral (narrative)* Diagnostic Procedure Only (Routine) - Authorized Specialty Diagnoses / Procedures Referred By David samaniego Referred To Contact [facility] Diagnoses Abnormal mammogram Procedures US BREAST LTD LT US BREAST UNI REAL TIME WITH IMAGE LIMITED PodlogarMaribel APRN.CNP [address] [place] [address] [facility] [address] [place] [address] Referral ID Status Reason Start Date Expiration Date Visits Requested Visits Authorized [id number] Authorized Auto-Generat ed Referral 12/09/2021 01/08/2023 1 1 [facility] for referral (narrative)* Outpatient Procedure (Routine) - Closed Specialty Diagnoses / Procedures Referred By Contac t Referred To Contact [facility] Diagnoses Screening for cancer of oral cavity Procedures COLONOSCOPY SCREENING COLONOSCOPY FLX DX W/COLLJ SPEC WHEN PFRMD Che Ríso PA-C [address] [place] [address] [facility] [address] [place] [address] Referral ID Status Reason Start Date Expiration Date V isits Requested Visits Authorized [id number] Closed Auto-Generate d Referral 02/25/2022 02/25/2023 1 1 [facility] for referral (narrative)* Outpatient Procedure (Routine) - Pending Review Specialty Diagnoses / Procedures [facility] Diagnoses Bradycardia Procedures ECG COMPLETE ECG ROUTINE ECG W/LEAST 12 LDS W/I&R Maribel Rebolledo APRN.DEEP SEA DIVER [address] [place] [address] [facility] [address] [place] [address] Referral ID Status Reason Start Date Expiration Date Visits Requested Visits Authorized [id number] Pending Review Auto-Generat ed Referral 06/23/2024 1 1 [facility] for visit Narrative* Diagnostic Procedure Only (Routine) - Closed Specialty Diagnoses / Procedures [facility] To [facility] Diagnoses Abnormal mammogram Procedures ESTELA DIAGNOSTIC LT DIAGNOSTIC MAMMOGRAPHY COMPUTER-AIDED DETCJ UNI Maribel Rebolledo, ULTRASOUND TECHNICIAN.DEEP SEA DIVER [address] [place] [address] [facility] [address] [place] [address] Referral ID Status Reason Start Date Expiration Date V isits Requested Visits Authorized [id number] Closed Auto-Generate d Referral 12/09/2021 01/08/2023 1 1 [facility] for visit Narrative* Outpatient Procedure (Routine) - Closed Specialty Diagnoses / Procedures [facility] To [facility] Diagnoses Screening for cancer of oral cavity Procedures COLONOSCOPY SCREENING COLONOSCOPY FLX DX W/COLLJ SPEC WHEN PFRMD Che Ríos PA-C [address] [place] [address] [facility] [address] [place] [address] Referral ID Status Reason Start Date Expiration Date V isits Requested Visits Authorized [id number] Closed Auto-Generate d Referral 02/25/2022 02/25/2023 1 1 [facility] Summary Purpose Family History No Family History Records FoundNo Family History Records FoundNo Family History Records FoundNo Family History Records Found Advance Directives No Advanced Directives Records FoundNo Advanced Directives Records FoundNo Advanced Directives Records FoundNo Advanced Directives Records Found Medications Administered Section Inactive Administered Medications - up to 3 most recent administrations Medication Order MAR Action Action Date Dose Rate Site diphenhydrAMINE 12.5-50 mg injection (BENADRYL) 12.5-50 mg, INTRAVENOUS, DIRECTED, Starting on Thu05/02/22 at 1000, Until Thu05/02/22 at 1359, DOSING DIRECTED BY PHYSICIAN FOR PROCEDURAL SEDATION ONLY, Intraprocedure Given 05/02/2022 9:51 AM EDT 50 mg fentaNYL 50 mcg/mL 25-100 mcg injection (SUBLIMAZE) 25-100 mcg, INTRAVENOUS, DIRECTED, Starting on Thu05/02/22 at 1000, Until Thu05/02/22 at 1359, DOSING DIRECTED BY PHYSICIAN FOR PROCEDURAL SEDATION ONLY, Intraprocedure Given 05/02/2022 10:01 AM EDT 50 mcg Active Administered Medications - up to 3 most recent administrations Medication Order MAR Action Action Date Dose Rate Site PHENYLephrine 2.5 % 1 Drop (AK-DILATE, MARIE-SYNEPHRINE) 1 Drop, BOTH EYES, DIRECTED, Starting on Thu07/08/22 at 1130, Until Thu07/08/22 at 2329, Administer for dilation PROTECT FROM LIGHT Given 07/08/2022 11:30 AM EST 1 Drop proparacaine 0.5 % 1 Drop (ALCAINE) 1 Drop, BOTH EYES, DIRECTED, Starting on Thu07/08/22 at 1130, Until Thu07/08/22 at 2329, Administer for pneumo tonometry, tonopen tonometry, or pachymetry. In the event of a proparacaine shortage, administer tetracaine 0.5% ophthalmic drops 1 drop in the left eye as directed for pneumo tonometry, tonopen tonometry, or pachymetry Given 07/08/2022 11:30 AM EST 1 Drop tropicamide 1 % 1 Drop (MYDRIACYL) 1 Drop, BOTH EYES, DIRECTED, Starting on Thu07/08/22 at 1130, Until Thu07/08/22 at 2329, Administer for dilation Given 07/08/2022 11:30 AM EST 1 Drop Additional Source Comments INFORMATION SOURCE (unrecogn ized section and content) DATE CREATED AUTHOR AUTHOR'S ORGANIZ ATION 02/04/2018 [facility] DATE CREATED AUTHOR AUTHOR'S ORGANIZ ATION 05/13/2019 [facility] DATE CREATED AUTHOR AUTHOR'S ORGANIZ ATION 07/03/2023 [facility] Source Comments (unrecognize d section and content) In the event this informatio n is protected by the Federal Confidentiality of Alcohol and Drug Abuse Patient Records regulations: The Federal rules restrict any use of the information to criminally investigate or prosecute any alcohol or drug abuse patient.[facility] event this information is protected by the Federal Confidentiality of Alcohol and Drug Abuse Patient Records regulations: The Federal rules restrict any use of the information to criminally investigate or prosecute any alcohol or drug abuse patient.[facility] the event this information is protected by the Federal Confidentiality of Alcohol and Drug Abuse Patient Records regulations: The Federal rules restrict any use of the information to criminally investigate or prosecute any alcohol or drug abuse patient.[facility] the event this information is protected by the Federal Confidentiality of Alcohol and Drug Abuse Patient Records regulations: The Federal rules restrict any use of the information to criminally investigate or prosecute any alcohol or drug abuse patient.[facility] the event this information is protected by the Federal Confidentiality of Alcohol and Drug Abuse Patient Records regulations: The Federal rules restrict any use of the information to criminally investigate or prosecute any alcohol or drug abuse patient.[facility] the event this information is protected by the Federal Confidentiality of Alcohol and Drug Abuse Patient Records regulations: The Federal rules restrict any use of the information to criminally investigate or prosecute any alcohol or drug abuse patient.[facility] the event this information is protected by the Federal Confidentiality of Alcohol and Drug Abuse Patient Records regulations: The Federal rules restrict any use of the information to criminally investigate or prosecute any alcohol or drug abuse patient.[facility] the event this information is protected by the Federal Confidentiality of Alcohol and Drug Abuse Patient Records regulations: The Federal rules restrict any use of the information to criminally investigate or prosecute any alcohol or drug abuse patient.[facility] the event this information is protected by the Federal Confidentiality of Alcohol and Drug Abuse Patient Records regulations: The Federal rules restrict any use of the information to criminally investigate or prosecute any alcohol or drug abuse patient.[facility] the event this information is protected by the Federal Confidentiality of Alcohol and Drug Abuse Patient Records regulations: The Federal rules restrict any use of the information to criminally investigate or prosecute any alcohol or drug abuse patient.[facility] the event this information is protected by the Federal Confidentiality of Alcohol and Drug Abuse Patient Records regulations: The Federal rules restrict any use of the information to criminally investigate or prosecute any alcohol or drug abuse patient.[facility] the event this information is protected by the Federal Confidentiality of Alcohol and Drug Abuse Patient Records regulations: The Federal rules restrict any use of the information to criminally investigate or prosecute any alcohol or drug abuse patient.[facility] the event this information is protected by the Federal Confidentiality of Alcohol and Drug Abuse Patient Records regulations: The Federal rules restrict any use of the information to criminally investigate or prosecute any alcohol or drug abuse patient.[facility] the event this information is protected by the Federal Confidentiality of Alcohol and Drug Abuse Patient Records regulations: The Federal rules restrict any use of the information to criminally investigate or prosecute any alcohol or drug abuse patient.[facility] the event this information is protected by the Federal Confidentiality of Alcohol and Drug Abuse Patient Records regulations: The Federal rules restrict any use of the information to criminally investigate or prosecute any alcohol or drug abuse patient.[facility] the event this information is protected by the Federal Confidentiality of Alcohol and Drug Abuse Patient Records regulations: The Federal rules restrict any use of the information to criminally investigate or prosecute any alcohol or drug abuse patient.[facility] the event this information is protected by the Federal Confidentiality of Alcohol and Drug Abuse Patient Records regulations: The Federal rules restrict any use of the information to criminally investigate or prosecute any alcohol or drug abuse patient.[facility] the event this information is protected by the Federal Confidentiality of Alcohol and Drug Abuse Patient Records regulations: The Federal rules restrict any use of the information to criminally investigate or prosecute any alcohol or drug abuse patient.[facility] the event this information is protected by the Federal Confidentiality of Alcohol and Drug Abuse Patient Records regulations: The Federal rules restrict any use of the information to criminally investigate or prosecute any alcohol or drug abuse patient.[facility] the event this information is protected by the Federal Confidentiality of Alcohol and Drug Abuse Patient Records regulations: The Federal rules restrict any use of the information to criminally investigate or prosecute any alcohol or drug abuse patient.[facility] the event this information is protected by the Federal Confidentiality of Alcohol and Drug Abuse Patient Records regulations: The Federal rules restrict any use of the information to criminally investigate or prosecute any alcohol or drug abuse patient.[facility] the event this information is protected by the Federal Confidentiality of Alcohol and Drug Abuse Patient Records regulations: The Federal rules restrict any use of the information to criminally investigate or prosecute any alcohol or drug abuse patient.[facility] the event this information is protected by the Federal Confidentiality of Alcohol and Drug Abuse Patient Records regulations: The Federal rules restrict any use of the information to criminally investigate or prosecute any alcohol or drug abuse patient.[facility] Reason for Visit (unrecogniz ed section and content) Reason Comments Recheck Reason Comments mail request Reason Comments Results Reason Comments Outpatient Colonoscopy Reason Comments Results Reason Comments Consult colonoscopy Reason Onset Date Comments Refill Request 03/03/2022 Reason Comments Diarrhea With nausea and lowe r abd pain x5 days Reason Comments Follow Up Review colonoscopy r esults Reason Comments Blurred Vision Both Eyes Pressure in both eyes Especially on comp uter x 1 month Specialty Diagnoses / Procedures Referred By Contelmer t Referred To Contact Optometry Diagnoses Vision impairment Procedures CONSULT TO OPTOMETRY OFFICE/OUTPATIENT NEW HIGH MDM 60-74 MINUTES Martha Jeronimo MD [address] [place] [address] Referral ID Status Reason Start Date Expiration Date V isits Requested Visits Authorized [id number] Closed PCP Requested Referral 06/16/2022 06/16/2023 1 1 Reason Onset Date Comments Refill Request 08/26/2022 Reason Comments Difficulty Reading Both Eyes Eye Itching Both Eyes Mild New glasses Reason Comments F/U 6 months Care Teams (unrecognized sec tion and content) Manager Global Relationship Specialty Start Date End Date Martha Jeronimo MD [address] [place] [address] PCP - General Family Practice 12/14/17 Manager Global Relationship Specialty Start Date End Date Martha Jeronimo MD [address] [place] [address] PCP - General Family Practice 12/14/17 Manager Global Relationship Specialty Start Date End Date Martha Jeronimo MD [address] [place] [address] PCP - General Family Practice 12/14/17 Manager Global Relationship Specialty Start Date End Date Martha Jeronimo MD [address] [facility] [place] [address] PCP - General Family Practice 12/14/17 Manager Global Relationship Specialty Start Date End Date Martha Jeronimo MD [address] [facility] [place] [address] PCP - General Family Practice 12/14/17 Manager Global Relationship Specialty Start Date End Date Martha Jeronimo MD [address] [facility] [place] [address] PCP - General Family Practice 12/14/17 Manager Global Relationship Specialty Start Date End Date Martha Jeronimo MD [address] [facility] [place] [address] PCP - General Family Medicine 12/14/17 Manager Global Relationship Specialty Start Date End Date Martha Jeronimo MD [address] [facility] [place] [address] PCP - General Family Medicine 12/14/17 Manager Global Relationship Specialty Start Date End Date Martha Jeronimo MD [address] [facility] [place] [address] PCP - General Family Medicine 12/14/17 Manager Global Relationship Specialty Start Date End Date Martha Jeronimo MD [address] [facility] [place] [address] PCP - General Family Medicine 12/14/17 Manager Global Relationship Specialty Start Date End Date Martha Jeronimo MD [address] [facility] [place] [address] PCP - General Family Medicine 12/14/17 Manager Global Relationship Specialty Start Date End Date Martha Jeronimo MD [address] [facility] [place] [address] PCP - General Family Medicine 12/14/17 Manager Global Relationship Specialty Start Date End Date Martha Jeronimo MD [address] [facility] [place] [address] PCP - General Family Medicine 12/14/17 Manager Global Relationship Specialty Start Date End Date Martha Jeronimo MD [address] [facility] [place] [address] PCP - General Family Medicine 12/14/17 Manager Global Relationship Specialty Start Date End Date Martha Jeronimo MD [address] [facility] [place] [address] PCP - General Family Medicine 12/14/17 Manager Global Relationship Specialty Start Date End Date Martha Jeronimo MD [address] [facility] [place] [place] [address] PCP - General Family Medicine 12/14/17 Manager Global Relationship Specialty Start Date End Date Martha Jeronimo MD [address] [facility] [place] [address] PCP - General Family Medicine 12/14/17 FOR RECORDS PERTAINING TO PATIENTS WHO ARE OR HAVE BEEN ENROLLED IN A CHEMICAL DEPENDENCY/SUBSTANCEABUSE PROGRAM, SOME INFORMATION MAY BE OMITTED. This clinical summary was aggregated from multiple sources. Caution should be exercised in using it in the provision of clinical care. This summary normalizes information from multiple sources, and as a consequence, information in this document may materially change the coding, format and clinical context of patient data. In addition, data may be omitted in some cases. CLINICAL DECISIONS SHOULD BE BASED ON THE PRIMARY CLINICAL RECORDS. [facility] [employer] [facility] provides no warranty or guarantee of the accuracy or completeness of information in this document.
[2023-08-07 20:48] VITALS: BP 136/88; PULSE 78; RESP 18; O2SAT 95
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
[2023-08-07] MEDS: oxyCODONE 5 MG Tablet PO (20:57)
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
[2023-08-07 23:12] LABS: Mucous, Urine 0 SEEN /hpf (<or=2+); Squamous Epithelial Cells - UA 0 SEEN /hpf (5-10)
[2023-08-07 23:14] LABS: Absolute Lymphocyte Count 0.85 X10^3/uL (0.83-4.51); Absolute Neutrophil Count 17.6 X10^3/uL (2.0-7.7); Basophil# 0.07 X10^3/uL; Basophil% 0.4 % (0-1); Color, Urine Yellow (Yellow); Eosinophil# 0.01 X10^3/uL; Eosinophils% 0.1 % (0-5); Glucose, Dipstick Normal (Normal); Hematocrit 42.1 % (37-47); Hemoglobin 13.7 g/dL (12.0-15.0); Ketone-Dipstick 5 mg/dl (Negative); Leukocyte Esterase-Dipstick 25 /ul (Negative); Lymphocyte # 0.85 X10^3/ul (0.83-4.51); Lymphocyte % 4.3 % (19-41); Mean Corp Hgb Conc 32.5 g/dL (32-36); Mean Corpuscular Hgb 29.5 pg (27.0-32.0); Mean Corpuscular Volume 90.5 fL (81-99); Mean Platelet Vol. 10.7 fl (6.2-12.0); Monocyte# 1.12 X10^3/uL; Monocyte% 5.6 % (0-10); NRBC Flagged by Analyzer 0 % (0-5); Neutrophil # 17.64 X10^3/uL (2.7-7.7); Neutrophil % 88.7 % (47-70); Nitrite-Dipstick Positive (Negative); Occult Blood-Urine 250 /ul (Negative); Platelet Count 239 K/mm3 (150-450); Protein-Dipstick 100 mg/dl (Negative); RBC Distribution Width CV 13.2 % (11.6-14.6); RBC Distribution Width SD 43.4 fl (35.1-43.9); Red Blood Count 4.65 M/mm3 (4.2-5.4); Specific Gravity, Urine 1.025 (1.002-1.030); Urine Bilirubin Dipstick Negative (Negative); Urine Clarity Cloudy (Clear); Urine Urobilinogen Normal (Normal); White Blood Count 19.9 K/mm3 (4.4-11.0)
[2023-08-07 23:21] LABS: Red Blood Cells-Urine > 100 SEEN /hpf (0-5)
[2023-08-07 23:22] LABS: White Blood Cells 0-5 SEEN /hpf (0-5)
[2023-08-07 23:23] LABS: Bacteria 1+ /hpf (None Seen)
[2023-08-07 23:30] LABS: ALB/GLOB Ratio 1.1 RATIO (0.9-2.4); AST(SGOT) 105 U/L (15-37); Alanine Aminotransfer ALT/SGPT 85 U/L (13-56); Albumin, Serum 3.5 g/dL (3.2-5.0); Alkaline Phosphatase 74 U/L (45-117); Anion Gap 5 (5-15); BUN 18 mg/dL (7-18); BUN/Creat Ratio 21.3 RATIO (10-20); Calcium,Total 8.8 mg/dL (8.5-10.1); Chloride 114 mmol/L (98-107); Creatinine, Serum 0.85 mg/dL (0.55-1.02); EST Glomerular Filtration Rate 71 mL/min (>60); Est Glom Filt Rate - Afr Amer 86 mL/min (>60); Globulin 3.2 g/dL (2.2-4.2); Glucose 152 mg/dL (74-106); Potassium 4.1 mmol/L (3.5-5.1); Protein, Total 6.7 g/dL (6.4-8.2); Sodium Level 141 mmol/L (136-145)
[2023-08-07 23:31] LABS: Prothrombin Time (Protime)PT. 13.5 SECONDS (11.7-14.9)
[2023-08-08] MEDS: 0.9% Normal Saline (500mL Bag) 500 ML 999 ML IV
[2023-08-08 00:15] VITALS: BP 145/66; PULSE 73; RESP 18; O2SAT 93
[2023-08-08 00:16] VITALS: BMI 38.7
[2023-08-08] MEDS: oxyCODONE 5 MG Tablet PO ×2 (00:45→01:54)
[2023-08-08 01:12] VITALS: BP 145/66; PULSE 79; RESP 18; O2SAT 97
== END 2023-08-08 01:56 | disposition home or self-care (01) ==
PROVIDERS: Emergency Provider Emergency Medicine; PCP Family Medicine; Visit Provider Emergency Medicine
DX: S32.502A Unspecified fracture of left pubis, initial encounter for closed fracture (principal); S82.54XA Nondisplaced fracture of medial malleolus of right tibia, initial encounter for closed fracture; V43.52XA Car driver injured in collision with other type car in traffic accident, initial encounter; S20.20XA Contusion of thorax, unspecified, initial encounter; W22.10XA Striking against or struck by unspecified automobile airbag, initial encounter; Y92.410 Unspecified street and highway as the place of occurrence of the external cause; I25.10 Atherosclerotic heart disease of native coronary artery without angina pectoris; I10 Essential (primary) hypertension; E78.5 Hyperlipidemia, unspecified; Z79.82 Long term (current) use of aspirin; Z79.899 Other long term (current) drug therapy; Z90.710 Acquired absence of both cervix and uterus; R10.9 Unspecified abdominal pain
CPT/HCPCS: 71100; 71101; 71260; 72125; 73502; 73610; 74177; 80053; 81001; 85025; 85610; 96360; 99284; J7030; Q9967; A4216

== ENCOUNTER 2023-08-19 10:29 | Emergency (ER) | payer MEDICARE, SELFPAY ==
[2023-08-19] VITALS (11 sets, daily range): BP systolic 141–177; BP diastolic 66–103; PULSE 51–68; RESP 12–18; TEMP 36.6; O2SAT 99–100; BMI 37.0
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
[2023-08-19 11:38] LABS: Absolute Lymphocyte Count 1.19 X10^3/uL (0.83-4.51); Basophil# 0.07 X10^3/uL; Basophil% 0.7 % (0-1); Eosinophil# 0.24 X10^3/uL; Eosinophils% 2.4 % (0-5); Hematocrit 41.4 % (37-47); Lymphocyte # 1.19 X10^3/ul (0.83-4.51); Lymphocyte % 11.7 % (19-41); Mean Corp Hgb Conc 31.4 g/dL (32-36); Mean Corpuscular Hgb 29.1 pg (27.0-32.0); Mean Corpuscular Volume 92.8 fL (81-99); Mean Platelet Vol. 10.8 fl (6.2-12.0); Monocyte# 0.61 X10^3/uL; NRBC Flagged by Analyzer 0 % (0-5); Neutrophil # 7.97 X10^3/uL (2.7-7.7); Neutrophil % 78.4 % (47-70); Platelet Count 291 K/mm3 (150-450); RBC Distribution Width CV 13.7 % (11.6-14.6); Red Blood Count 4.46 M/mm3 (4.2-5.4); White Blood Count 10.2 K/mm3 (4.4-11.0)
--- NOTE | 2023-08-19 11:40 | RAD_ITS ---
HISTORY: chest pain. TECHNIQUE: XR Chest 1 View. COMPARISON: 08/07/2023. FINDINGS: CARDIOMEDIASTINAL BORDERS: Cardiac silhouette within normal limits in size. Mediastinal contour unremarkable. LUNGS: Radiographically clear. PLEURA: No pleural effusion or pneumothorax seen. OSSEOUS STRUCTURES: Unremarkable. RAD/Chest 1 View (Portable) IMPRESSION: No acute cardiopulmonary process identified. Electronically Signed: Yomaira Garber MD at 12:11 EST ,
[2023-08-19] MEDS: Aspirin 81 MG TAB.CHEW 324 MG PO (11:43)
[2023-08-19] MEDS: 0.9% Normal Saline (1000mL) 1,000 ML 150 ML IV (11:43)
[2023-08-19 11:49] LABS: Anion Gap 5 (5-15); BUN 16 mg/dL (7-18); Calcium,Total 9.4 mg/dL (8.5-10.1); Chloride 111 mmol/L (98-107); EST Glomerular Filtration Rate 76 mL/min (>60); Est Glom Filt Rate - Afr Amer 91 mL/min (>60); Estimated Creatinine Clearance 64.72 ml/min; Glucose 95 mg/dL (74-106); Sodium Level 140 mmol/L (136-145); Troponin-I HS (w/2H Reflex) 9 pg/mL (3.0-54.0)
[2023-08-19 11:53] LABS: D-Dimer Quantitative (DVT/PE) 1.88 FEU/ug/m (0.27-0.49)
[2023-08-19 12:09] LABS: Bacteria 0 SEEN /hpf (None Seen); Mucous, Urine 0 SEEN /hpf (<or=2+); Red Blood Cells-Urine 0 SEEN /hpf (0-5); White Blood Cells 0 SEEN /hpf (0-5)
[2023-08-19 12:17] LABS: Color, Urine Yellow (Yellow); Glucose, Dipstick Normal (Normal); Ketone-Dipstick Negative (Negative); Leukocyte Esterase-Dipstick Negative /ul (Negative); Nitrite-Dipstick Negative (Negative); Occult Blood-Urine Negative /ul (Negative); Protein-Dipstick Negative (Negative); Specific Gravity, Urine 1.005 (1.002-1.030); Urine Bilirubin Dipstick Negative (Negative); Urine Clarity Clear (Clear); Urine Urobilinogen Normal (Normal)
--- NOTE | 2023-08-19 12:17 | CT_ITS ---
HISTORY: chest pain, elevated d-dimer. TECHNIQUE: CT angiogram of the chest was performed after the intravenous administration of 100 mL Isovue-370. Post-processing of the angiographic images was performed with multiplanar reformation and 3D reconstruction. Individualized dose optimization techniques were used for this CT. 1147 images. COMPARISON: Complex R same day, CT 08/07/2023. FINDINGS: CENTRAL AIRWAYS: Patent. LUNGS: Very mild left lower lobe scarring. PLEURA: No pneumothorax or significant pleural effusion. HEART/PERICARDIUM: Heart within normal limits in size with coronary artery disease. No pericardial effusion. PULMONARY ARTERIES: No filling defect. AORTA/VESSELS: No thoracic aortic aneurysm or dissection flap. Mild atherosclerosis. MEDIASTINUM/ORLIN: No pathologically enlarged lymph nodes. OSSEOUS STRUCTURES: Subtle nondisplaced fracture of the right third rib anteriorly with decreased overlying chest wall contusion. Nondisplaced left L1 transverse process fracture. UPPER ABDOMEN: Unremarkable. CT/CTA Chest W/WO Contrast IMPRESSION: No evidence of pulmonary embolism. Small nondisplaced fracture of the anterior right third rib with decreased chest wall contusion. Nondisplaced left L1 transverse process fracture. Electronically Signed: Yomaira Garber MD at 13:15 EST ,
--- OUTSIDE RECORDS SUMMARY | 2023-08-19 12:44 | XMS RPT_ITS | CCD ---
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 Diagnoses / Procedures Referred By Contac t Referred To Contact [facility] Diagnoses Abnormal CT scan, cervical spine Procedures NM PET/CT WHOLE BODY INITIAL PET IMAGING FOR CT ATTENUATION WHOLE BODY Martha Jeronimo MD [address] [place] [address] [facility] [address] [place] [address] Referral ID Status Reason Start Date Expiration Date Visits Requested Visits Authorized [id number] Authorized Auto-Generat ed Referral 08/13/2023 09/11/2024 1 1 [facility] for visit Narrative* Diagnostic Procedure Only (Routine) - Closed Specialty Diagnoses / Procedures Referred By Contac t Referred To Contact [facility] Diagnoses Abnormal mammogram Procedures ESTELA DIAGNOSTIC LT DIAGNOSTIC MAMMOGRAPHY COMPUTER-AIDED DETCJ UNI PodlogMaribel sousa APRN.[employer] [address] [place] [address] [facility] [address] [place] [address] Referral ID Status Reason Start Date Expiration Date V isits Requested Visits Authorized [id number] Closed Auto-Generate d Referral 12/09/2021 01/08/2023 1 1 [facility] for visit Narrative* Outpatient Procedure (Routine) - Closed Specialty Diagnoses / Procedures Referred By Contac t Referred To Contact [facility] Diagnoses Screening for cancer of oral cavity Procedures COLONOSCOPY SCREENING COLONOSCOPY FLX DX W/COLLJ SPEC WHEN PFRMD Che Ríos PA-C [address] [place] [address] [facility] [place] [address] [place] [address] Referral ID Status Reason Start Date Expiration Date V isits Requested Visits Authorized [id number] Closed Auto-Generate d Referral 02/25/2022 02/25/2023 1 1 [facility] Summary Purpose Family History No Family History [...] DATE CREATED AUTHOR AUTHOR'S ORGANIZ ATION 02/04/2018 [facility] DATE CREATED AUTHOR AUTHOR'S ORGANIZ ATION 05/13/2019 [facility] DATE CREATED AUTHOR AUTHOR'S ORGANIZ ATION 08/17/2023 [facility] Source Comments (unrecognize d section and content) In the event this informatio n is protected by the Federal Confidentiality of Alcohol and Drug Abuse Patient Records regulations: The Federal rules restrict any use of the information to criminally investigate or prosecute any alcohol or drug abuse patient.[facility] the event this information is protected by the Federal Confidentiality of Alcohol and Drug Abuse Patient Records regulations: The Federal rules restrict any use of the information to criminally investigate or prosecute any alcohol or drug abuse patient.[facility] Hospital[facility] the event this information is protected by the Federal Confidentiality of Alcohol and Drug Abuse Patient Records regulations: The Federal rules restrict any use of the information to criminally investigate or prosecute any alcohol or drug abuse patient.[facility] Hospital[facility] the event this information is protected by the Federal Confidentiality of Alcohol and Drug Abuse Patient Records regulations: The Federal rules restrict any use of the information to criminally investigate or prosecute any alcohol or drug abuse patient.[facility] Hospital[facility] the event this information is protected by the Federal Confidentiality of Alcohol and Drug Abuse Patient Records regulations: The Federal rules restrict any use of the information to criminally investigate or prosecute any alcohol or drug abuse patient.[facility] the event this information is protected by the Federal Confidentiality of Alcohol and Drug Abuse Patient Records regulations: The Federal rules restrict any use of the information to criminally investigate or prosecute any alcohol or drug abuse patient.[facility] Hospital[facility] the event this information is protected by the Federal Confidentiality of Alcohol and Drug Abuse Patient Records regulations: The Federal rules restrict any use of the information to criminally investigate or prosecute any alcohol or drug abuse patient.[facility] Hospital[facility] the event this information is protected by the Federal Confidentiality of Alcohol and Drug Abuse Patient Records regulations: The Federal rules restrict any use of the information to criminally investigate or prosecute any alcohol or drug abuse patient.[facility] Hospital[facility] the event this information is protected by the Federal Confidentiality of Alcohol and Drug Abuse Patient Records regulations: The Federal rules restrict any use of the information to criminally investigate or prosecute any alcohol or drug abuse patient.[facility] Hospital[facility] the event this information is protected by the Federal Confidentiality of Alcohol and Drug Abuse Patient Records regulations: The Federal rules restrict any use of the information to criminally investigate or prosecute any alcohol or drug abuse patient.[facility] Hospital[facility] the event this information is protected by the Federal Confidentiality of Alcohol and Drug Abuse Patient Records regulations: The Federal rules restrict any use of the information to criminally investigate or prosecute any alcohol or drug abuse patient.[facility] Hospital[facility] the event this information is protected by the Federal Confidentiality of Alcohol and Drug Abuse Patient Records regulations: The Federal rules restrict any use of the information to criminally investigate or prosecute any alcohol or drug abuse patient.[facility] Hospital[facility] the event this information is protected by the Federal Confidentiality of Alcohol and Drug Abuse Patient Records regulations: The Federal rules restrict any use of the information to criminally investigate or prosecute any alcohol or drug abuse patient.[facility] HospitalIn the event this information is protected by the Federal Confidentiality of Alcohol and Drug Abuse Patient Records regulations: The Federal rules restrict any use of the information to criminally investigate or prosecute any alcohol or drug abuse patient.[facility] HospitalIn the event this information is protected by the Federal Confidentiality of Alcohol and Drug Abuse Patient Records regulations: The Federal rules restrict any use of the information to criminally investigate or prosecute any alcohol or drug abuse patient.[facility] Hospital[facility] the event this information is protected by the Federal Confidentiality of Alcohol and Drug Abuse Patient Records regulations: The Federal rules restrict any use of the information to criminally investigate or prosecute any alcohol or drug abuse patient.[facility] Hospital[facility] the event this information is protected by the Federal Confidentiality of Alcohol and Drug Abuse Patient Records regulations: The Federal rules restrict any use of the information to criminally investigate or prosecute any alcohol or drug abuse patient.[facility] HospitalIn the event this information is protected by the Federal Confidentiality of Alcohol and Drug Abuse Patient Records regulations: The Federal rules restrict any use of the information to criminally investigate or prosecute any alcohol or drug abuse patient.[facility] Hospital[facility] the event this information is protected by the Federal Confidentiality of Alcohol and Drug Abuse Patient Records regulations: The Federal rules restrict any use of the information to criminally investigate or prosecute any alcohol or drug abuse patient.[facility] HospitalIn the event this information is protected by the Federal Confidentiality of Alcohol and Drug Abuse Patient Records regulations: The Federal rules restrict any use of the information to criminally investigate or prosecute any alcohol or drug abuse patient.[facility] HospitalIn the event this information is protected by the Federal Confidentiality of Alcohol and Drug Abuse Patient Records regulations: The Federal rules restrict any use of the information to criminally investigate or prosecute any alcohol or drug abuse patient.[facility] HospitalIn the event this information is protected by the Federal Confidentiality of Alcohol and Drug Abuse Patient Records regulations: The Federal rules restrict any use of the information to criminally investigate or prosecute any alcohol or drug abuse patient.[facility] Hospital[facility] the event this information is protected by the Federal Confidentiality of Alcohol and Drug Abuse Patient Records regulations: The Federal rules restrict any use of the information to criminally investigate or prosecute any alcohol or drug abuse patient.[facility] HospitalIn the event this information is protected by the Federal Confidentiality of Alcohol and Drug Abuse Patient Records regulations: The Federal rules restrict any use of the information to criminally investigate or prosecute any alcohol or drug abuse patient.[facility] Reason for Visit (unrecogniz ed section and [...] month Specialty Diagnoses / Procedures Referred By Contac t Referred To Contact Optometry Diagnoses Vision impairment Procedures CONSULT TO OPTOMETRY OFFICE/OUTPATIENT NEW HIGH MDM 60-74 MINUTES Martha Jeronimo MD [address] [place] [address] Referral ID Status Reason Start Date Expiration Date V isits Requested Visits Authorized [id number] Closed PCP Requested Referral 06/16/2022 06/16/2023 1 1 Reason Onset Date Comments Refill Request 08/26/2022 Reason Comments Difficulty Reading Both Eyes Eye Itching Both Eyes Mild New glasses Reason Comments F/U 6 months Reason Comments ER F/U Care Teams (unrecognized sec tion and content) Housekeeper Head Relationship Specialty Start Date End Date Martha Jeronimo MD [address] [place], [place] [id number] PCP - General Family Practice 12/14/17 Housekeeper Head Relationship Specialty Start Date End Date Martha Jeronimo MD [address] [place], [place] [id number] PCP - General Family Practice 12/14/17 Housekeeper Head Relationship Specialty Start Date End Date Martha Jeornimo MD [address] [place] [address] PCP - General Family Practice 12/14/17 Housekeeper Head Relationship Specialty Start Date End Date Martha Jeronimo MD [address] [facility] [place] [address] PCP - General Family Practice 12/14/17 Housekeeper Head Relationship Specialty Start Date End Date Martha Jeronimo MD [address] [facility] [place] [address] PCP - General Family Practice 12/14/17 Housekeeper Head Relationship Specialty Start Date End Date Martha Jeronimo MD [address] [facility] [place] [address] PCP - General Family Practice 12/14/17 Housekeeper Head Relationship Specialty Start Date End Date Martha Jeronimo MD [address] [facility] [place] [address] PCP - General Family Medicine 12/14/17 Housekeeper Head Relationship Specialty Start Date End Date Martha Jeronimo MD [address] [facility] [place] [address] PCP - General Family Medicine 12/14/17 Housekeeper Head Relationship Specialty Start Date End Date Martha Jeronimo MD [address] [facility] [place] [address] PCP - General Family Medicine 12/14/17 Housekeeper Head Relationship Specialty Start Date End Date Martha Jeronimo MD [address] [facility] [place] [address] PCP - General Family Medicine 12/14/17 Housekeeper Head Relationship Specialty Start Date End Date Martha Jeronimo MD [address] [facility] [place] [address] PCP - General Family Medicine 12/14/17 Housekeeper Head Relationship Specialty Start Date End Date Martha Jeronimo MD [address] [facility] [place] [address] PCP - General Family Medicine 12/14/17 Housekeeper Head Relationship Specialty Start Date End Date Martha Jeronimo MD [address] [facility] [place] [address] PCP - General Family Medicine 12/14/17 Housekeeper Head Relationship Specialty Start Date End Date Martha Jeronimo MD [address] [facility] [place] [address] PCP - General Family Medicine 12/14/17 Housekeeper Head Relationship Specialty Start Date End Date Martha Jeronimo MD [address] [facility] [place] [place] [address] PCP - General Family Medicine 12/14/17 Housekeeper Head Relationship Specialty Start Date End Date Martha Jeronimo MD [address] [facility] [place] [address] PCP - General Family Medicine 12/14/17 Housekeeper Head Relationship Specialty Start Date End Date Martha Jeronimo MD [address] [facility] [place] [address] PCP - General Family Medicine 12/14/17 Housekeeper Head Relationship Specialty Start Date End Date Martha Jeronimo MD [address] [facility] [place] [address] PCP - General Family Medicine 12/14/17 FOR [...] BE BASED ON THE PRIMARY CLINICAL RECORDS. [facility] [employer] [facility]. provides no warranty or guarantee of the accuracy or completeness of information in this document.
[2023-08-19 12:46] LABS: Squamous Epithelial Cells - UA 0-5 SEEN /hpf (5-10)
[2023-08-19 13:28] LABS: Reflex Troponin-HS? (from REC) Y
== END 2023-08-19 13:42 | disposition home or self-care (01) ==
PROVIDERS: Emergency Provider Emergency Medicine; PCP Family Medicine; Visit Provider Emergency Medicine
DX: S22.31XA Fracture of one rib, right side, initial encounter for closed fracture (principal); S32.018A Other fracture of first lumbar vertebra, initial encounter for closed fracture; R07.9 Chest pain, unspecified; I10 Essential (primary) hypertension; E78.5 Hyperlipidemia, unspecified; I25.10 Atherosclerotic heart disease of native coronary artery without angina pectoris; Z79.899 Other long term (current) drug therapy; Z79.82 Long term (current) use of aspirin; Z90.710 Acquired absence of both cervix and uterus; V89.2XXA Person injured in unspecified motor-vehicle accident, traffic, initial encounter; R06.02 Shortness of breath
CPT/HCPCS: 71045; 71275; 80048; 81001; 84484; 85025; 85379; 87086; 87631; 93005; 96360; 96361; 99283; Q9967; A4216

== ENCOUNTER → 2023-09-01 | Outpatient (CLI) | payer MEDICARE, SELFPAY ==
--- NOTE | 2023-09-01 10:00 | PET_ITS ---
EXAMINATION: FDG PET/CT ? 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 ? COMPARISON EXAMINATION: None available. ? INDEX LESION SIZE SUV INTERPRETATION Axial skeleton ? 10.1 max Fulfills quantitative criteria for viable neoplasm ? TECHNIQUE: Following the intravenous administration of 14.05 mCi of F-18 deoxyglucose via the left antecubital fossa, multiplanar image acquisitions of the head, neck, chest, abdomen and pelvis to the level of the midthigh, obtained at one-hour post radiopharmaceutical administration contemporaneously interpreted with the current CT of the chest, abdomen and pelvis dated 09/01/2023 via coregistration reveal: SERUM GLUCOSE LEVEL:? 94 mg/dL? HEIGHT:?? 60 inches WEIGHT:?? 189 pounds ? FINDINGS: ? HEAD/NECK:? There is no evidence of abnormal increased glucose metabolism in the pharyngeal mucosal space, parapharyngeal space, oropharynx, bilateral-lateral and anterior neck, hypopharynx and distribution of the larynx. ? The visualized portion of the cerebral cortical-subcortical structures demonstrate symmetric and preserved glucose metabolism. ? CHEST:? There is no quantitative scintigraphic evidence of abnormal increased glucose metabolism within the context of the bilateral hemithorax pulmonary parenchyma, right and left hemithorax at the pleural interface, mediastinal structures, and left-right thoracic perihilum. ? CT of the chest demonstrates the following anatomic characteristics: Atherosclerotic calcification is defined in the thoracic aorta without evidence of dilatation, aneurysm formation. Coronary arterial calcification is observed. Bilateral axillary and mediastinal soft tissue densities are ametabolic. ? ABDOMEN/PELVIS:? Normal physiologic distribution of the radiopharmaceutical is identified in the hepatic and splenic parenchyma, both renal units, urinary bladder, and visualized intestinal tract. ? CT of the abdomen and pelvis is remarkable for the following: Atherosclerotic calcification is defined in the abdominal aorta without evidence of dilatation, aneurysm formation. Pelvic arterial calcification is observed. Colonic diverticulosis is encountered without evidence of diverticulitis. Soft tissue defined in the left anterior pelvic wall is ametabolic. ? SKELETAL:? Enhanced tracer uptake is defined in the sternum, the right anterior chest wall-rib, the left sacral ala, and left superior and inferior public ramus. The calculated standard uptake value is 10.1. Corresponding destructive change is noted in analogous locations on review of CT of the chest, abdomen, and pelvis dated 09/01/2023.? ? Degenerative changes defined in the thoracic and lumbar spine demonstrate no evidence of increased glucose metabolism. There are no sclerotic, mixed sclerotic-lytic, or primarily lytic changes defined in the axial skeletal structures with evidence of increased FDG uptake. ? PET/PET/CT Tumor Base -Thigh Init IMPRESSION: 1. ABNORMAL EXAMINATION INDICATIVE OF MALIGNANT-VIABLE NEOPLASM. 2. Increased radiopharmaceutical concentration defined in the axial skeletal structures fulfills quantitative criteria for viable neoplasm. (Nikki et al, Clinical Nuclear Medicine, 29:161, 2004). 3. No other quantitatively significant abnormalities are noted. ? Electronic Signature Rei Lyon D.O. Accurate Quantification of SUVs for this report are calculated using the exclusive [employer]. ([place]. Patent No. [id number] [phone] [phone] [place] patent [phone]). Standardization and correction of the FDG SUV metric via [employer] technology allow for vendor non-specific objective quantitative examination comparison and optimization of the sensitivity and specificity of the FDG PET-CT examination. . [email or web address] Electronically Signed: Rei Lyon DO at 23:52 EST ,
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
== END | disposition home or self-care (01) ==
PROVIDERS: PCP Family Medicine; Referring Provider Family Medicine; Visit Provider Family Medicine
DX: R93.7 Abnormal findings on diagnostic imaging of other parts of musculoskeletal system (principal); C90.00 Multiple myeloma not having achieved remission; D48.0 Neoplasm of uncertain behavior of bone and articular cartilage
CPT/HCPCS: 78815; A9552

== ENCOUNTER → 2023-10-19 | Outpatient (CLI) | payer MEDICARE, SELFPAY ==
--- NOTE | 2023-10-19 08:53 | ECHOD_ITS ---
Reason For Study: Aortic Valve Disorder Procedure This was a 2D Doppler, Color Flow transthoracic echocardiogram. Exam performed in department. Left Ventricle Normal LV size. Left ventricular systolic function is normal. The estimated ejection fraction is 70 %. No regional wall motion abnormalities noted. Right Ventricle Normal RV size. Normal systolic function. Atria Normal left atrium. Normal right atrium. Mitral Valve Normal mitral valve. Tricuspid Valve Normal tricuspid valve. Aortic Valve Bicuspid aortic valve. Moderate focal aortic valve calcification. Peak aortic valve gradient 100 mmHg. Mean aortic valve gradient 60 mmHg. Trivial aortic valve insufficiency. Pulmonic Valve Normal pulmonic valve. Great Vessels Normal aortic root. The pulmonary artery is normal size. Normal inferior vena cava. Pericardium/Pleural No pericardial effusion. MMode/2D Measurements & Calculations LVIDd: 4.7 cm IVSd: 1.2 cm LVOT diam: 2.0 cm LVIDs: 3.0 cm LVPWd: 1.2 cm LVOT area: 3.0 cm2 RVDd: 3.2 cm FS: 36.0 % Ao root diam: 3.4 cm LAV(MOD-bp): 50.3 ml LVAd ap4: 25.6 cm2 LA dimension: 3.5 cm LAV(MOD-bp) Indexed: 28.4 ml/m2 LVLd ap4: 7.1 cm LAV(MOD-sp2): 53.4 ml EDV(MOD-sp4): 75.5 ml LAV(MOD-sp4): 43.3 ml EDV(sp4-el): 78.9 ml LVAs ap4: 12.5 cm2 LVLs ap4: 5.5 cm ESV(MOD-sp4): 24.2 ml ESV(sp4-el): 24.3 ml EF(MOD-sp4): 68.0 % EF(sp4-el): 69.2 % SV(MOD-sp4): 51.3 ml SV(sp4-el): 54.6 ml LA A4 area: 17.3 cm2 RA A4 area: 11.7 cm2 TAPSE: 1.8 cm Time Measurements MV dec time: 0.22 sec Doppler Measurements & Calculations MV E max shaji: 71.0 cm/sec Lat Peak E' Shaji: 6.3 cm/sec Med Peak E' Shaji: 5.7 cm/sec MV A max shaji: 100.1 cm/sec E/E' lat: 11.3 E/E' med: 12.4 MV E/A: 0.71 MV V2 max: 114.8 cm/sec MV P1/2t max shaji: 85.7 cm/sec Ao V2 max: 494.5 cm/sec MV max P.3 mmHg MV P1/2t: 85.8 msec Ao max P.1 mmHg MV V2 mean: 46.5 cm/sec Ao V2 mean: 360.1 cm/sec MV mean P.1 mmHg MV dec slope: 292.5 cm/sec2 Ao mean P.0 mmHg MV V2 VTI: 39.5 cm MVA(P1/2t): 2.6 cm2 Ao V2 VTI: 132.5 cm AV (velocity ratio): 0.23 MVA(VTI): 2.4 cm2 CHARISSE(I,D): 0.72 cm2 CHARISSE(V,D): 0.71 cm2 LV V1 max: 115.4 cm/sec SV(LVOT): 94.8 ml PA V2 max: 101.6 cm/sec LV V1 max P.4 mmHg PA V2 mean: 72.9 cm/sec LV V1 mean P.1 mmHg LV V1 mean: 82.2 cm/sec LV V1 VTI: 31.1 cm ECHO/Echo Complete Interpretation Summary Normal LV size. Left ventricular systolic function is normal. The estimated ejection fraction is 70 %. Moderate focal aortic valve calcification. Bicuspid aortic valve. Mean aortic valve gradient 60 mmHg. Severe aortic stenosis. Ordering Physician: Gabe Samuel Referring Physician: Gabe Samuel Performed By: Joshua Moran RCS
== END | disposition home or self-care (01) ==
PROVIDERS: PCP Family Medicine; Referring Provider Nurse Practitioner Family; Visit Provider Nurse Practitioner Family
DX: I25.10 Atherosclerotic heart disease of native coronary artery without angina pectoris (principal); I35.0 Nonrheumatic aortic (valve) stenosis
CPT/HCPCS: 93306

== ENCOUNTER 2023-12-04 10:21 | Day surgery (SDC) | payer MEDICARE, SELFPAY ==
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
[2023-11-18 12:39] LABS: Absolute Lymphocyte Count 1.24 X10^3/uL (0.83-4.51); Absolute Neutrophil Count 5.6 X10^3/uL (2.0-7.7); Basophil# 0.04 X10^3/uL; Basophil% 0.5 % (0-1); Eosinophil# 0.11 X10^3/uL; Eosinophils% 1.4 % (0-5); Hematocrit 42.6 % (37-47); Lymphocyte # 1.24 X10^3/ul (0.83-4.51); Lymphocyte % 16.3 % (19-41); Mean Corp Hgb Conc 32.9 g/dL (32-36); Mean Corpuscular Hgb 29.5 pg (27.0-32.0); Mean Corpuscular Volume 89.7 fL (81-99); Mean Platelet Vol. 10.7 fl (6.2-12.0); Monocyte# 0.59 X10^3/uL; Monocyte% 7.8 % (0-10); NRBC Flagged by Analyzer 0 % (0-5); Neutrophil # 5.61 X10^3/uL (2.7-7.7); Neutrophil % 73.7 % (47-70); Platelet Count 247 K/mm3 (150-450); RBC Distribution Width CV 13.5 % (11.6-14.6); RBC Distribution Width SD 44.4 fl (35.1-43.9); Red Blood Count 4.75 M/mm3 (4.2-5.4); White Blood Count 7.6 K/mm3 (4.4-11.0)
[2023-11-18 13:23] LABS: Anion Gap 5 (5-15); BUN 19 mg/dL (7-18); BUN/Creat Ratio 23.1 RATIO (10-20); Calcium,Total 8.9 mg/dL (8.5-10.1); Chloride 107 mmol/L (98-107); Creatinine, Serum 0.82 mg/dL (0.55-1.02); EST Glomerular Filtration Rate 73 mL/min (>60); Est Glom Filt Rate - Afr Amer 89 mL/min (>60); Glucose 106 mg/dL (74-106); Potassium 3.7 mmol/L (3.5-5.1); Sodium Level 139 mmol/L (136-145)
--- NOTE | 2023-12-07 09:41 | CL.D_ITS ---
Patient Name: KENNA KINNEY Study Date: 12/04/2023 Performing: Ty Quinones MD Ht: 60 inches 152.4 cm : 1955 Wt: 176.99 lbs 80.28 kg Age: 68 Gender: female BSA: 1.77 PROCEDURE(S) PERFORMED [id number])[facility] CLINICAL PROFILE AND INDICATIONS Indications: Valvular Disease Heart Failure: None Stress/Imaging Stress/Image Study Performed: No CAD Presentations: No Sxs, no angina. CONCLUSIONS Severe single-vessel disease, bicuspid aortic valve and severe aortic stenosis. RECOMMENDATIONS Surgery consult for coronary revascularization Surgery consult for Valve Replacement surgery DESCRIPTION OF PROCEDURE The patient arrived to the procedure lab. The risks and benefits of the procedure as well as a full description of our services here and current unavailability of surgical backup were fully explained to the patient and/or their significant other prior to the catheterization. The Timeout was completed, verifying the correct patient and procedure. The patient's procedural site was prepped and draped in the usual fashion. Local anesthetic was given subcutaneously to right radial region with Lidocaine 2%. Using a modified Seldinger technique, arterial access was obtained via the right radial artery, a 6Fr sheath was inserted. Right Coronary Artery selective angiography was then performed in multiple views using a 5 Fr. 4.0 [place] catheter. Left Coronary Artery selective angiography was performed in multiple views using a 5 Fr. 4.0 [place] catheter.The arterial sheath was pulled and a TR Band was applied for hemostasis 12 ml of air CORONARY ANGIOGRAPHY DOMINANCE: Right Dominant LEFT HEART ASSESSMENT Left Ventricular Ejection Fraction: by Echo 65 % Normal LV wall motion Normal Left Ventricular systolic function LEFT MAIN: Angiographically normal LEFT ANTERIOR DESCENDING ARTERY: Complex mid segment eccentric 80% stenosis after the takeoff of the first diagonal branch and between the second diagonal branch. After that an area of stenosis of 70% is also noted. CIRCUMFLEX ARTERY: Mild luminal irregularities RIGHT CORONARY ARTERY: Mild luminal irregularities less than 30% VALVE FINDINGS: Aortic Valve Calcification - severe Bicuspid Aortic Valve Aortic Valve Stenosis - severe COMPLICATIONS No Complications PROCEDURE MEDICATIONS Fentanyl 50 mcg IV Versed 1 mg IV Oxygen: 2 L/min via nasal cannula Heparin given IA 12/04/2023 12:37:58 Verapamil 2.5mg, Ntg 100mcgs, 3000 units of Heparin given IA 12/04/2023 12:37:58 SUMMARY OF HEMODYNAMIC DATA Time AIR REST ECG 10:43:36 AO 106/61 (80) SA 12:53:38 AO 118/72 (88) 12:56:16 AIR REST 13:10:23 Signed By Ty Quinones MD On 12/07/2023 09:41:22 Ty Quinones MD
== END 2023-12-04 14:45 | disposition home or self-care (01) ==
LOC: CLSP 10:24
PROVIDERS: Nurse Practitioner Family; PCP Family Medicine; Referring Provider Internal Medicine Cardiovascular Disease; Visit Provider Internal Medicine Cardiovascular Disease
DX: I35.0 Nonrheumatic aortic (valve) stenosis (principal); I25.10 Atherosclerotic heart disease of native coronary artery without angina pectoris; I10 Essential (primary) hypertension; E78.5 Hyperlipidemia, unspecified; Z98.51 Tubal ligation status; Z90.710 Acquired absence of both cervix and uterus; Z82.49 Family history of ischemic heart disease and other diseases of the circulatory system
CPT/HCPCS: 36415; 80048; 85025; 93454; 99152; 99153; J7040; Q9967; C1769; C1894

== ENCOUNTER 2023-12-31 12:11 | Emergency (ER) | payer MEDICARE, SELFPAY ==
[2023-12-31 12:12] VITALS: BP 160/106; PULSE 71; RESP 16; TEMP 36.7; O2SAT 96; BMI 36.9
--- NOTE | 2023-12-31 12:26 | CT_ITS ---
STUDY: CT CERVICAL SPINE WITHOUT CONTRAST REASON FOR EXAM: Female, 68 years old. Head injury due to a fall. RADIATION DOSAGE (If Supplied By Facility): CTDIvol = ( 25.48 ) mGy, DLP = ( 513.83 ) mGycm TECHNIQUE: High resolution transaxial imaging was performed without contrast material. Sagittal and coronal images were reconstructed. Individualized dose optimization techniques were used for this CT. COMPARISON: Comparison is made with prior examination dated August 07, 2023. FINDINGS: Normal craniovertebral junction. Normal anterior atlantoaxial articulation. Normal odontoid process. There is straightening of the normal cervical lordosis. Once again, there are multiple tiny lucencies in the cervical vertebrae. Metastatic deposits should be ruled out. C2-3: Normal endplates. Normal disc height and morphology. Normal central canal and intervertebral neuroforamina. C3-4: Normal endplates. Normal disc height and morphology. Normal central canal and intervertebral neuroforamina. C4-5: Mild degree of disc space narrowing and anterior spondylosis. C5-6: Mild degree of disc space narrowing and spondylosis. Uncovertebral arthrosis. Mild degree of right neural foraminal stenosis. C6-7: Normal endplates. Normal disc height and morphology. Normal central canal and intervertebral neuroforamina. C7-T1: Normal endplates. Normal disc height and morphology. Normal central canal and intervertebral neuroforamina. Normal visualized soft tissue structures. CT/Spine Cervical without Contras IMPRESSION: Multilevel degenerative changes, as described above. Stable multiple tiny lucencies noted in the cervical vertebrae. Metastatic deposit should be ruled out. There has been essentially no change as compared to prior study. Electronically Signed: Isacc Rios MD at 13:10 EDT ,
--- NOTE | 2023-12-31 12:26 | CT_ITS ---
STUDY: CT BRAIN WITHOUT CONTRAST REASON FOR EXAM: Female, 68 years old. head injury due to a fall RADIATION DOSAGE (If Supplied By Facility): CTDIvol = ( 44.99 ) mGy, DLP = ( 745.49 ) mGycm TECHNIQUE: Transaxial CT imaging of the brain was performed without administration of intravenous contrast material. Individualized dose optimization techniques were used for this CT. COMPARISON: No relevant priors. FINDINGS: Normal soft tissue structures. Normal calvarium. Normal size ventricles and extra-axial spaces for the patient''s age. Normal white matter tracts of the cerebral hemispheres. Normal basal ganglia and thalami. Normal brainstem. Normal cerebellum. There is no intracranial hemorrhage. There are no findings of an acute ischemic infarction. Normal visualized paranasal sinuses. CT/Brain/Head without Contrast IMPRESSION: Normal unenhanced CT scan of the brain. Electronically Signed: Isacc Rios MD at 13:11 EDT ,
--- NOTE | 2023-12-31 12:30 | EX.ED.DYSGE1 ---
HPI <GILDA Henriquez - Last Filed: 12/31/23 13:37> History of Present Illness Chief Complaint: Head Injury Narrative Narrative: Patient presenting today due to a head injury that occurred this morning. She reports that she was standing on top of the toilet with the lid down to fix something on her window and was stepping off and lost her balance causing her to fall backwards and hit the back of her head on the sink. There was no LOC, she is not on any blood thinners. She reports slight pain to the back of her head. She also has chronic neck stiffness that does not seem to be any worse. She denies any other injury and is able to ambulate without any difficulty or pain. [facility] <GILDA Henriquez - Last Filed: 12/31/23 13:37> [facility] Medical History Bradycardia Hyperparathyroidism Anxiety and depression Atherosclerosis of coronary artery of [place] heart without angina pectoris Obesity Nonrheumatic aortic (valve) stenosis Hyperlipidemia Essential (primary) hypertension Home Medications ?Medication ?Instructions ?Recorded ?Last Taken ?Type aspirin 81 mg tablet,delayed 81 mg PO DAILY 12/06/19 12/04/23 History release (Adult Aspirin Regimen) multivitamin 1 tab PO DAILY 12/07/19 Unknown History losartan 50 mg tablet 75 mg (1.5 x 50 mg) PO DAILY #135 04/06/20 Unknown Rx tabs hydrochlorothiazide 25 mg tablet 25 mg PO DAILY 12/04/20 Unknown History ezetimibe 10 mg tablet 10 mg PO DAILY 07/15/22 Unknown History hydrocortisone 2.5 % topical cream 1 applic topical BID PRN itching 12/31/23 Unknown Rx #20 grams Allergy/AdvReac Type Severity Reaction Status Date / Time [id number] Reductase AdvReac Mild cough Verified 12/31/23 12:14 Inhibitor lisinopril AdvReac cough Verified 12/31/23 12:14 Family History Mother Cancer Lymphoma Aunt Cancer paternal Ovarian Brother Hypertension Grandmother Hypertension maternal Grandfather Myocardial infarction from [place] Grandmother Heart disease maternal Diabetes maternal Father CAD (coronary artery disease) Coronary Stents Surgical History History of vaginal hysterectomy History of tubal ligation History of History of parathyroidectomy Social History Smoking Status: Never smoker alcohol intake: current alcohol intake frequency: holidays/special occasions only substance use type: does not use caffeine: Yes Type: tea ROS <GILDA Henriquez - Last Filed: 12/31/23 13:37> ROS ED Constitutional Constitutional ED: Denies chills or fever(s) Eyes Eyes: Denies change in vision Respiratory/Chest Respiratory/Chest: Denies cough or dyspnea Gastrointestinal Gastrointestinal: Denies abdominal pain, nausea or vomiting Musculoskeletal Musculoskeletal: Denies arthralgias or myalgias Integumentary Denies Abrasions Neurologic Neurologic: Reports headache(s); Denies weakness EXAM <GILDA Henriquez - Last Filed: 12/31/23 13:37> Physical Exam Const Vital Signs: 12/31/23 12:12 12/31/23 13:33 Temperature 98.1 F Temperature Source Temporal Pulse Rate 71 Respiratory Rate 16 Respiratory Effort Normal Non-Labored Respiratory Depth Normal Respiratory Pattern Normal Blood Pressure 160/106 H Blood Pressure Mean 124 Pulse Ox 96 Oxygen Delivery Method Room Air Room Air Positive well nourished, well developed and no apparent distress General Appearance ED: well developed HEENT Reports normocephalic and head/scalp atraumatic Mouth ED: Yes moist mucous membranes normal Eyes PERRL and EOMs intact bilaterally Neck full ROM and supple Chest Wall inspection of chest normal Resp normal respiratory effort and clear to auscultation bilaterally Cardio regular rate and regular rhythm GI soft to palpation, non-tender, non-distended and no masses Back/Spine normal ROM and normal to inspection Extremity normal to inspection and full ROM Neuro oriented x3, CN's II-XII intact bilaterally, moves all extremities, no focal motor deficits and no sensory deficits noted Sensorium / Orientation: awake and alert Psych mental status grossly normal and thought process normal Skin no wounds Skin Narrative: Macular erythemic rash to the bilateral volar forearms. No signs of infection. <Dr. Petty Grissom DO - Last Filed: 12/31/23 16:52> Physical Exam Const Vital Signs: 12/31/23 12:12 12/31/23 13:33 Temperature 98.1 F Temperature Source Temporal Pulse Rate 71 Respiratory Rate 16 Respiratory Effort Normal Non-Labored Respiratory Depth Normal Respiratory Pattern Normal Blood Pressure 160/106 H Blood Pressure Mean 124 Pulse Ox 96 Oxygen Delivery Method Room Air Room Air [facility] <GILDA Henriquez - Last Filed: 12/31/23 13:37> [facility] Narrative Medical decision making narrative: Patient presenting due to a head injury that occurred this morning. CT of the head and cervical spine will be obtained to rule out intracranial bleed and cervical fracture. She also noticed a macular pruritic rash shortly after she was fixing her window. She reports that she has had this off and on over the last few weeks. The symptoms come and go within a few hours and nothing in particular seems to trigger the rash. She thinks they could be bug bites and they do look consistent with this. She has not had any exposures to any known allergens. I will write her a prescription for hydrocortisone cream to use as needed. Head CT is negative for any acute findings, cervical spine CT does show small lucencies that are unchanged from her previous CT in August. She is being worked up at the [facility] for possible malignancy. On examination patient is doing well, she will be discharged home in stable condition. Radiography Diagnostic Testing: Clinical Impression(s) from Imaging Studies Brain CT 12/31/23 12:26 IMPRESSION: Normal unenhanced CT scan of the brain. Electronically Signed: Isacc Rios MD at 13:11 EDT , Cervical Spine CT 12/31/23 12:26 IMPRESSION: Multilevel degenerative changes, as described above. Stable multiple tiny lucencies noted in the cervical vertebrae. Metastatic deposit should be ruled out. There has been essentially no change as compared to prior study. Electronically Signed: Isacc Rios MD at 13:10 EDT , <Dr. Petty Grissom DO - Last Filed: 12/31/23 16:52> MDM MDM Narrative Medical decision making narrative: Patient presenting due to a head injury that occurred this morning. CT of the head and cervical spine will be obtained to rule out intracranial bleed and cervical fracture. She also noticed a macular pruritic rash shortly after she was fixing her window. She reports that she has had this off and on over the last few weeks. The symptoms come and go within a few hours and nothing in particular seems to trigger the rash. She thinks they could be bug bites and they do look consistent with this. She has not had any exposures to any known allergens. I will write her a prescription for hydrocortisone cream to use as needed. Head CT is negative for any acute findings, cervical spine CT does show small lucencies that are unchanged from her previous CT in August. She is being worked up at the [facility] for possible malignancy. On examination patient is doing well, she will be discharged home in stable condition. I have personally performed a face to face assessment of the patient and have reviewed the HO Note. I performed a substantive portion of the visit including all aspects of the following. My dior findings include: History is patient is a 68-year-old female presenting for evaluation after head injury. Patient was standing over toilet trying to work on a window in her bathroom when she fell backwards striking the back of her head. No reported loss of conscious. Does have some chronic neck pain but denies any acute change of this. Is not on any blood thinners. While in the ER is also start to complain of bug bites on her bilateral inner arms. Patient not have any focal neurologic deficits. No obvious signs of trauma on exam. CT of the brain and cervical spine obtained which does not show any acute traumatic injury. Patient does have questionable lytic lesions on her cervical vertebrae however when she is informed that she states she is already had this worked up and been told that it is not metastatic or cancerous. Discussed with patient that the rash does appear consistent to be a dermatitis from bug bites however I cannot definitively say which bug bite it is. Discussed with her that it could be mosquitoes however it also could be from fleas or bedbugs. She verbalizes understanding of this. Is prescribed hydrocortisone cream for the itching. Given return precautions. Discharged home in stable condition. At this time I do not think she requires extended observation for head injury. Other additions or changes: [None] Radiography Diagnostic Testing: Clinical Impression(s) from Imaging Studies Brain CT 12/31/23 12:26 IMPRESSION: Normal unenhanced CT scan of the brain. Electronically Signed: Isacc Rios MD at 13:11 EDT , Cervical Spine CT 12/31/23 12:26 IMPRESSION: Multilevel degenerative changes, as described above. Stable multiple tiny lucencies noted in the cervical vertebrae. Metastatic deposit should be ruled out. There has been essentially no change as compared to prior study. Electronically Signed: Isacc Rios MD at 13:10 EDT , Discharge Plan Triage Chief Complaint: Head Injury ED Midlevel Provider: Ursula Donovan ED Provider: Petty Grissom Dx/Rx/DC Orders Clinical Impression: Head injury, Rash Instructions: Nonspecific Skin Rash, ED Head Injury (Adult) Prescriptions: New hydrocortisone 2.5 % cream 1 applic topical BID PRN (Reason: itching) Qty: 20 0RF No Action multivitamin Tablet 1 tab PO DAILY aspirin [Adult Aspirin Regimen] 81 mg tablet,delayed release (DR/EC) 81 mg PO DAILY losartan 50 mg tablet 75 mg PO DAILY Qty: 135 3RF hydrochlorothiazide 25 mg tablet 25 mg PO DAILY ezetimibe 10 mg tablet 10 mg PO DAILY Primary Care Provider: Ryder Jeronimo Referrals: Ryder Jeronimo MD [Primary Care Provider] - 1 Week Activity Restrictions/Additional Instructions: Please return to the ED for any concerning signs or symptoms. Print Language: Icelandic Disposition Disposition: Home, Self Care Discharge Date/Time: 12/31/23 13:36
== END 2023-12-31 13:36 | disposition home or self-care (01) ==
PROVIDERS: Emergency Provider Emergency Medicine; PCP Family Medicine; Visit Provider Emergency Medicine
DX: S09.90XA Unspecified injury of head, initial encounter (principal); L30.9 Dermatitis, unspecified; W18.12XA Fall from or off toilet with subsequent striking against object, initial encounter; Y93.E9 Activity, other interior property and clothing maintenance; I25.10 Atherosclerotic heart disease of native coronary artery without angina pectoris; E78.5 Hyperlipidemia, unspecified; I10 Essential (primary) hypertension; Z79.82 Long term (current) use of aspirin; Z79.899 Other long term (current) drug therapy; Z90.710 Acquired absence of both cervix and uterus; Z98.51 Tubal ligation status
CPT/HCPCS: 70450; 72125; 99282

== ENCOUNTER → 2024-12-14 | Outpatient (CLI) | payer MEDICARE, SELFPAY ==
--- NOTE | 2024-12-14 14:55 | ECHOD_ITS ---
Reason For Study Reason For Study: Prosthetic Heart Valve Procedure This was a 2D Doppler, Color Flow transthoracic echocardiogram. The study was technically difficult. Exam performed in department. Left Ventricle Normal LV size. Left ventricular systolic function is normal. The left ventricular ejection fraction is 60 %. No regional wall motion abnormalities noted. Right Ventricle Normal RV size. Normal systolic function. Atria Normal left atrium. Normal right atrium. Mitral Valve Normal mitral valve. Tricuspid Valve Normal tricuspid valve. Mild tricuspid valve insufficiency. Pulmonary artery systolic pressure is 22 mmHg. Aortic Valve Peak aortic valve gradient 23 mmHg. Mean aortic valve gradient 12 mmHg. Bioprosthetic aortic valve. MMode/2D Measurements & Calculations LVIDd: 4.3 cm IVSd: 1.2 cm LVOT diam: 1.7 cm LVIDs: 2.5 cm LVPWd: 1.1 cm RVDd: 3.2 cm FS: 41.9 % LVOT area: 2.4 cm2 Ao root diam: 3.8 cm LAV(MOD-bp): 58.8 ml LA A4 area: 19.3 cm2 LAV(MOD-bp) Indexed: 34.6 ml/m2 LAV(MOD-sp2): 60.7 ml LAV(MOD-sp4): 54.0 ml LA dimension(2D): 4.1 cm RA A4 area: 10.8 cm2 Time Measurements MV dec time: 0.25 sec Doppler Measurements & Calculations MV E max shaji: 94.6 cm/sec Lat Peak E' Shaji: 12.6 cm/sec Med Peak E' Shaji: 5.7 cm/sec MV A max shaji: 91.9 cm/sec E/E' lat: 7.5 E/E' med: 16.6 MV E/A: 1.0 MV V2 max: 102.9 cm/sec MV P1/2t max shaji: 98.0 cm/sec Ao V2 max: 239.5 cm/sec MV max P.2 mmHg MV P1/2t: 84.8 msec Ao max P.0 mmHg MV V2 mean: 55.7 cm/sec Ao V2 mean: 163.9 cm/sec MV mean P.5 mmHg MV dec slope: 338.4 cm/sec2 Ao mean P.4 mmHg MV V2 VTI: 44.3 cm MVA(P1/2t): 2.6 cm2 Ao V2 VTI: 57.6 cm AV (velocity ratio): 0.46 MVA(VTI): 1.4 cm2 CHARISSE(I,D): 1.1 cm2 CHARISSE(V,D): 1.1 cm2 LV V1 max: 107.6 cm/sec SV(LVOT): 62.9 ml TR max shaji: 215.7 cm/sec LV V1 max P.6 mmHg TR max P.6 mmHg LV V1 mean P.6 mmHg LV V1 mean: 76.3 cm/sec LV V1 VTI: 26.3 cm ECHO/Echo Complete Interpretation Summary Normal LV size. Left ventricular systolic function is normal. The left ventricular ejection fraction is 60 %. Bioprosthetic aortic valve. Mean aortic valve gradient 12 mmHg. Ordering Physician: Ty Quinones Referring Physician: Ty Quinones Performed By: Joshua Moran RCS
== END | disposition home or self-care (01) ==
PROVIDERS: PCP Family Medicine; Referring Provider Internal Medicine Cardiovascular Disease; Visit Provider Internal Medicine Cardiovascular Disease
DX: Z95.2 Presence of prosthetic heart valve (principal)
CPT/HCPCS: 93306